=== PATIENT | female | born 2000 | race Caucasian/White ===

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

== ENCOUNTER 2021-04-04 18:30 | Emergency (ER) | payer OTHER ==
[2021-04-04 19:54] VITALS: BP 126/83; PULSE 98; RESP 22; TEMP 98.7
--- NOTE | 2021-04-04 20:26 | XR ---
EXAMINATION TYPE: XR chest 1V portable DATE OF EXAM: 04/04/2021 COMPARISON: NONE HISTORY: Cough and congestion TECHNIQUE: Single view FINDINGS: Heart and mediastinum are normal. Lungs are clear. Diaphragm is normal. Bony thorax appears normal. IMPRESSION: Normal chest.
[2021-04-05] MEDS ORDERED: ONDANSETRON 4 MG ODT STARTER PACK 2 TAB BTL PO STA (00:21)
[2021-04-05] MEDS ORDERED: guaiFENesin-DM 600/30MG 1 EACH TAB.ER.12H PO STA (00:21)
--- NOTE | 2021-04-05 00:22 | ED ---
URI HPI - General Chief Complaint: Upper Respiratory Infection Stated Complaint: Cold,Loss of smell Time Seen by Provider: 04/04/21 23:47 Source: patient, family Mode of arrival: ambulatory Limitations: no limitations - History of Present Illness Initial Comments: 20-year-old female patient percents to the emergency department today for evaluation of upper respiratory symptoms and loss of taste and smell. Patient states she's been sick for the last week. States today she lost her taste and smell became concerned she may have COVID-19. States that she has had mild cough, sore throat which has resolved, and nasal congestion and drainage. Denies nausea or vomiting. Denies any constipation or diarrhea. Denies any abdominal pain. Denies taking any medication for her symptoms. She denies any chance of . She is not vaccinated. - Related Data Previous Rx's Medication Instructions Recorded Ondansetron [Zofran ODT] 4 mg PO Q8HR PRN #15 tab 07/01/18 Ondansetron [Zofran ODT] 4 mg PO Q8HR PRN #20 tab 12/20/18 Ibuprofen [Motrin] 600 mg PO Q8HR PRN #30 tab 04/05/21 Ondansetron [Zofran ODT] 4 mg PO Q8HR PRN #10 tab 04/05/21 guaiFENesin-DM 600/30MG [Mucinex 2 each PO Q12HR PRN #20 tab 04/05/21 Dm] Allergies Allergy/AdvReac Type Severity Reaction Status Date / Time No Known Allergies Allergy Verified 04/04/21 19:54 Review of Systems ROS Statement: Those systems with pertinent positive or pertinent negative responses have been documented in the HPI. ROS Other: All systems not noted in ROS Statement are negative. Past Medical History Past Medical History: No Reported History History of Any Multi-Drug Resistant Organisms: None Reported Past Surgical History: No Surgical Hx Reported Past Psychological History: No Psychological Hx Reported Smoking Status: Never smoker Past Alcohol Use History: None Reported Past Drug Use History: None Reported General Exam Limitations: no limitations General appearance: alert, in no apparent distress, other (This is a well- developed, well-nourished adult female in no acute distress.) ENT exam: Present: normal exam, normal oropharynx, mucous membranes moist, TM's normal bilaterally Respiratory exam: Present: normal lung sounds bilaterally. Absent: respiratory distress, wheezes, rales, rhonchi, stridor Cardiovascular Exam: Present: regular rate, normal rhythm, normal heart sounds. Absent: systolic murmur, diastolic murmur, rubs, gallop, clicks GI/Abdominal exam: Present: soft, normal bowel sounds. Absent: distended, tenderness, guarding, rebound, rigid Neurological exam: Present: alert, oriented X3, CN II-XII intact Psychiatric exam: Present: normal affect, normal mood Skin exam: Present: warm, dry, intact, normal color. Absent: rash Course Vital Signs 04/04/21 19:49 Temperature 98.7 F Pulse Rate 98 Respiratory 22 Rate Blood Pressure 126/83 O2 Sat by Pulse 99 Oximetry Medical Decision Making - Medical Decision Making 20-year-old female patient presents to the emergency department today for evaluation of upper respiratory symptoms and loss of taste and smell. Physical examination is unremarkable. She did test positive for COVID-19. Chest x-ray was negative. Vital signs are within normal range. We did discuss monoclonal antibody infusion, she did meet criteria. We discussed risks and benefits. She declined this medication and would like to be discharged home. She is given prescriptions for medications for symptom relief. She is instructed to follow- up with her primary care physician for recheck in 1-2 days. Return parameters were discussed in detail. She verbalizes understanding and agrees with this plan. My attending is Dr. Mauro. - Lab Data Lab Results 04/04/21 Range/Units 19:56 Coronavirus (PCR) Detected A (Not Detectd) - Radiology Data Radiology results: report reviewed, image reviewed One view x-ray of the chest is obtained. Report was reviewed in its entirety. Impression by Dr. Cordero shows normal chest. Disposition Clinical Impression: COVID-19 Disposition: HOME SELF-CARE Condition: Good Instructions (If sedation given, give patient instructions): Coronavirus Disease 2019 (COVID-19) Additional Instructions: Tips to help you feel better: -Maintain adequate fluid intake - especially water. -Rest, you are healing your body will require extra sleep. -Eat even if you do not feel like it - broth, jello, toast are fine if you cannot eat full meals. -Take tylenol and motrin alternating (if you have no allergies or have not been instructed to avoid these medications) to help with body aches and fevers. -Obtain over the counter vitamin C, zinc, and vitamin D3. -Take medications as prescribed. Follow-up with your primary care physician for recheck in 1-2 days. Return for any new, worsening, or concerning symptoms. Prescriptions: Ibuprofen [Motrin] 600 mg PO Q8HR PRN #30 tab PRN Reason: Pain guaiFENesin-DM 600/30MG [Mucinex Dm] 2 each PO Q12HR PRN #20 tab PRN Reason: Cough Ondansetron [Zofran ODT] 4 mg PO Q8HR PRN #10 tab PRN Reason: Nausea Is patient prescribed a controlled substance at d/c from ED?: No Referrals: None,Stated [Primary Care Provider] - 1-2 days Time of Disposition: 00:22
== END 2021-04-05 00:54 | disposition home or self-care (01) ==
LOC: EC 18:30
DX: U07.1 COVID-19 (principal)
CPT/HCPCS: 99283; 87635; 71045; S0119

== ENCOUNTER 2022-05-06 20:04 | Emergency (ER) | payer OTHER ==
[2022-05-06 20:42] VITALS: RESP 18; TEMP 103
[2022-05-06] MEDS ORDERED: IBUPROFEN 800 MG TAB PO STA (21:41)
[2022-05-06] MEDS ORDERED: ACETAMINOPHEN TAB 500 MG TAB PO STA (21:41)
[2022-05-06] MEDS ORDERED: ONDANSETRON ODT 4 MG TAB PO STA (21:45)
--- NOTE | 2022-05-06 21:52 | ED ---
URI HPI - General Chief Complaint: Upper Respiratory Infection Stated Complaint: Fever,sob,vomiting Time Seen by Provider: 05/06/22 21:40 Source: patient, family, RN notes reviewed, old records reviewed Mode of arrival: ambulatory Limitations: no limitations - History of Present Illness Initial Comments: Nontoxic appearing patient presents ambulatory with her mother with fever chills cough nausea vomiting for 2 days. She did have covid last year. Denies any medical history. She is a nonsmoker. MD Complaint: fever, cough, other (n/v) -: days(s) (2) Severity scale (1-10): 5 Quality: aching Consistency: constant - Related Data Previous Rx's Medication Instructions Recorded Ondansetron [Zofran ODT] 4 mg PO Q8HR PRN #15 tab 07/01/18 Ondansetron [Zofran ODT] 4 mg PO Q8HR PRN #20 tab 12/20/18 Ibuprofen [Motrin] 600 mg PO Q8HR PRN #30 tab 04/05/21 Ondansetron [Zofran ODT] 4 mg PO Q8HR PRN #10 tab 04/05/21 guaiFENesin-DM 600/30MG [Mucinex 2 each PO Q12HR PRN #20 tab 04/05/21 Dm] Ondansetron Odt [Zofran Odt] 4 mg PO Q8HR PRN #10 tab 05/06/22 Allergies Allergy/AdvReac Type Severity Reaction Status Date / Time No Known Allergies Allergy Verified 05/06/22 20:36 Review of Systems ROS Statement: Those systems with pertinent positive or pertinent negative responses have been documented in the HPI. ROS Other: All systems not noted in ROS Statement are negative. Past Medical History Past Medical History: No Reported History Additional Past Medical History / Comment(s): covid 2021 History of Any Multi-Drug Resistant Organisms: None Reported Past Surgical History: No Surgical Hx Reported Past Psychological History: No Psychological Hx Reported Smoking Status: Never smoker Past Alcohol Use History: Rare Past Drug Use History: None Reported General Exam Limitations: no limitations General appearance: alert, in no apparent distress Head exam: Present: atraumatic, normocephalic Eye exam: Present: normal appearance. Absent: scleral icterus, conjunctival injection, periorbital swelling ENT exam: Present: mucous membranes moist Expanded Mouth exam: Present: tongue normal, tongue elevation. Absent: drooling, trismus, muffled voice Throat exam: normal inspection. negative: tonsillar erythema, tonsillomegaly, tonsillar exudate, R peritonsillar mass, L peritonsillar mass Neck exam: Present: normal inspection, full ROM. Absent: tenderness, meningismus, lymphadenopathy Respiratory exam: Present: normal lung sounds bilaterally. Absent: respiratory distress, accessory muscle use Cardiovascular Exam: Present: tachycardia GI/Abdominal exam: Present: soft. Absent: distended, tenderness Extremities exam: Present: normal capillary refill. Absent: pedal edema Neurological exam: Present: alert, oriented X3, normal gait Psychiatric exam: Present: normal affect, normal mood Skin exam: Present: warm, dry, normal color. Absent: cyanosis, diaphoretic, petechiae, pallor Course Vital Signs 05/06/22 05/06/22 05/06/22 20:36 22:21 22:33 Temperature 103 F H Pulse Rate 130 H 119 H 104 H Respiratory 18 18 Rate Blood Pressure 112/74 109/72 O2 Sat by Pulse 97 97 Oximetry Medical Decision Making - Medical Decision Making She was given Tylenol, Motrin and Zofran in the emergency room. Positive for Covid. Heart rate came down with medications, tachycardia likely related to her fever She did have coronavirus last year. Directed to increase her fluid intake. Quarantine and follow up with her primary care doctor. Return to the emergency room with any new or concerning symptoms. Was pt. sent in by a medical professional or institution? @ -No Did you speak to anyone other than the patient for history? @ -Mother Did you review nursing and triage notes? @ -Yes I agree Were old charts reviewed? @ -No Differential Diagnosis? @ -Differential Fever: Pneumonia, viral URI, endocarditis, myocarditis, pericarditis, otitis, sinusitis, peritonsillar Abscess, retropharyngeal Abscess, epiglottitis, peritonitis, appendicitis, this is not meant to be an all-inclusive list. EKG interpreted by me (3pts min.)? @ -Not applicable X-rays interpreted by me (1pt min.)? @ -Not applicable CT interpreted by me (1pt min.)? @ -Not applicable U/S interpreted by me (1pt. min.)? @ -Not applicable What testing was considered but not performed? (CT, X-rays, U/S, labs)? Why? @ None What meds were considered but not given? Why? @ -None Did you discuss the management of the patient with other professionals? @ -No Did you reconcile home meds? @ -No Was smoking cessation discussed for >3mins.? @ -No Was critical care preformed (if so, how long)? @ -No Were there social determinants of health that impacted care today? How? (Homelessness, low income, unemployed, alcoholism, drug addiction, transportation, low edu. Level, literacy, decrease access to med. care, retirement, rehab)? @ -None Was there de-escalation of care discussed even if they declined? (Discuss DNR or withdrawal of care, Hospice)? @ -No What co-morbidities impacted this encounter? (DM, HTN, Smoking, COPD, CAD, Cancer, CVA, Hep., AIDS, mental health diagnosis, sleep apnea, morbid obesity)? @ -None Was patient admitted / discharged? @ -Discharged Undiagnosed new problem with uncertain prognosis? @ -[none] Drug Therapy requiring intensive monitoring for toxicity (Heparin, Nitro, Insulin, Cardizem)? @ -No Were any procedures done? @ -No Diagnosis/symptom? @ -Coronavirus Acute, or Chronic, or Acute on Chronic? @ -Acute Uncomplicated (without systemic symptoms) or Complicated (systemic symptoms)? @ -Uncomplicated Side effects of treatment? @ -[none] Exacerbation, Progression, or Severe Exacerbation] @ -[no] Poses a threat to life or bodily function? @ -[no] - Lab Data Lab Results 05/06/22 05/06/22 Range/Units 20:42 20:46 Coronavirus (PCR) Detected A (Not Detectd) Influenza Type A RNA Not Detected (Not Detectd) Influenza Type B (PCR) Not Detected (Not Detectd) Disposition Clinical Impression: COVID-19 Disposition: HOME SELF-CARE Condition: Good Instructions (If sedation given, give patient instructions): COVID-19 (Coronavirus Disease 2019) (ED) Additional Instructions: Tylenol and/or Motrin as needed for any fevers, pain or discomfort. Zofran as needed for any nausea. Increase your fluid intake and avoid dehydration as this will worsen your symptoms. Self quarantine for 5 days from symptom onset. If after 5 days with no symptoms you can go into public wearing just a mask. Follow-up with the primary care doctor as needed. Return to the emergency room with any new or concerning symptoms. Prescriptions: Ondansetron Odt [Zofran Odt] 4 mg PO Q8HR PRN #10 tab PRN Reason: Nausea Is patient prescribed a controlled substance at d/c from ED?: No Referrals: None,Stated [Primary Care Provider] - 1-2 days Time of Disposition: 22:33
[2022-05-06 22:22] VITALS: BP 109/72
[2022-05-06 22:33] VITALS: PULSE 104
== END 2022-05-06 23:00 | disposition home or self-care (01) ==
LOC: EC 20:04
DX: U07.1 COVID-19 (principal)
CPT/HCPCS: 87502; 87635; 99284

== ENCOUNTER 2022-08-04 18:27 | Emergency (ER) | payer OTHER ==
[2022-08-04 19:24] VITALS: BP 113/65; PULSE 57; RESP 14; TEMP 98.3
--- NOTE | 2022-08-04 19:24 | ED ---
Psych HPI - General Source: patient Mode of arrival: ambulatory Limitations: no limitations <Salome Carrasquillo - Last Filed: 08/04/22 19:23> <Trev Peña - Last Filed: 08/05/22 00:38> - General Stated Complaint: mental health issues Time Seen by Provider: 08/04/22 19:23 - History of Present Illness Initial Comments: Patient is a 21-year-old female presenting for mental health evaluation. States that she has been feeling depressed and would like to be evaluated. She denies any suicidal or homicidal ideation. Denies any alcohol or drug use. No physical complaints at this time. (Salome Carrasquillo) This is a 21-year-old female with no past medical history presents emergency department for depression. The patient stated that she has been depressed over last several months but stated that she has not had any resources or is talk to anybody therefore she wanted to come to the emergency department. The patient denied suicidal or homicidal ideation. The patient also denied any auditory or visual hallucinations. The patient stated that she doesn't of any follow-up or resources for a therapist or counselor's. The patient denied any other acute pain or complaints at this time. (Trev Peña) - Related Data Previous Rx's Medication Instructions Recorded Ondansetron [Zofran ODT] 4 mg PO Q8HR PRN #15 tab 07/01/18 Ondansetron [Zofran ODT] 4 mg PO Q8HR PRN #20 tab 12/20/18 Ibuprofen [Motrin] 600 mg PO Q8HR PRN #30 tab 04/05/21 Ondansetron [Zofran ODT] 4 mg PO Q8HR PRN #10 tab 04/05/21 guaiFENesin-DM 600/30MG [Mucinex 2 each PO Q12HR PRN #20 tab 04/05/21 Dm] Ondansetron Odt [Zofran Odt] 4 mg PO Q8HR PRN #10 tab 05/06/22 Allergies Allergy/AdvReac Type Severity Reaction Status Date / Time No Known Allergies Allergy Verified 05/06/22 20:36 Review of Systems ROS Other: All systems not noted in ROS Statement are negative. <Salome Carrasquillo - Last Filed: 08/04/22 19:23> ROS Other: All systems not noted in ROS Statement are negative. <Trev Peña - Last Filed: 08/05/22 00:38> ROS Statement: Those systems with pertinent positive or pertinent negative responses have been documented in the HPI. Past Medical History Past Medical History: No Reported History Additional Past Medical History / Comment(s): covid 2021 History of Any Multi-Drug Resistant Organisms: None Reported Past Surgical History: No Surgical Hx Reported Past Psychological History: No Psychological Hx Reported Smoking Status: Never smoker Past Alcohol Use History: Rare Past Drug Use History: None Reported <Salome Carrasquillo - Last Filed: 08/04/22 19:23> General Exam <Salome Carrasquillo - Last Filed: 08/04/22 19:23> Limitations: no limitations General appearance: alert, in no apparent distress Head exam: Present: atraumatic, normocephalic, normal inspection Eye exam: Present: normal appearance, PERRL Pupils: Present: normal accommodation ENT exam: Present: normal exam, normal oropharynx, mucous membranes moist Neck exam: Present: normal inspection, full ROM Respiratory exam: Present: normal lung sounds bilaterally Cardiovascular Exam: Present: regular rate, normal rhythm, normal heart sounds GI/Abdominal exam: Present: soft, normal bowel sounds Extremities exam: Present: normal inspection, full ROM Back exam: Present: normal inspection, full ROM Neurological exam: Present: alert, oriented X3, CN II-XII intact Psychiatric exam: Present: normal affect, normal mood, depressed Skin exam: Present: warm, dry <Trev Peña - Last Filed: 08/05/22 00:38> - General Exam Comments Initial Comments: Visual Physical Exam Vital signs reviewed General: Well-appearing, nontoxic, no acute distress. Head: Normocephalic, atraumatic Eyes: PERRLA, EOMI ENT: Airway patent Chest: Nonlabored breathing Skin: No visual rash, normal skin tone Neuro: Alert and oriented 3 Musculoskeletal: No gross abnormalities (Salome Carrasquillo) Course Vital Signs 08/04/22 19:18 Temperature 98.3 F Pulse Rate 57 L Respiratory 14 Rate Blood Pressure 113/65 O2 Sat by Pulse 97 Oximetry Medical Decision Making <Trev Peña - Last Filed: 08/05/22 00:38> - Medical Decision Making Was pt. sent in by a medical professional or institution (MYRNA Gonzalez, MANAGER OF MERCHANDISING, urgent care, hospital, or group home...) When possible be specific @ -No Did you speak to anyone other than the patient for history (EMS, parent, family, police, friend...)? What history was obtained from this source @ -No Did you review nursing and triage notes (agree or disagree)? Why? @ -I reviewed and agree with nursing and triage notes Were old charts reviewed (outside hosp., previous admission, EMS record, old EKG, old radiological studies, urgent care reports/EKG's, group home records)? Report findings @ -No old charts were reviewed Differential Diagnosis (chest pain, altered mental status, abdominal pain women, abdominal pain men, vaginal bleeding, weakness, fever, dyspnea, syncope, headache, dizziness, GI bleed, back pain, seizure, CVA, palpatations, mental health)? @ -Major depressive disorder, bipolar, PTSD EKG interpreted by me (3pts min.). @ -None X-rays interpreted by me (1pt min.). @ -None done CT interpreted by me (1pt min.). @ -None done U/S interpreted by me (1pt. min.). @ -None done What testing was considered but not performed or refused? (CT, X-rays, U/S, labs)? Why? @ -None What meds were considered but not given or refused? Why? @ -None Did you discuss the management of the patient with other professionals (professionals i.e. MYRNA Gonzalez, MANAGER OF MERCHANDISING, lab, RT, psych nurse, social worker health services, director search, teacher, disbursing officer, rehabilitation case coordinator)? Give summary @ -Yes, EPS nurse Was smoking cessation discussed for >3mins.? @ -No Was critical care preformed (if so, how long)? @ -No Were there social determinants of health that impacted care today? How? (Homelessness, low income, unemployed, alcoholism, drug addiction, transportation, low edu. Level, literacy, decrease access to med. care, nursing home, rehab)? @ -No Was there de-escalation of care discussed even if they declined (Discuss DNR or withdrawal of care, Hospice)? DNR status @ -No What co-morbidities impacted this encounter? (DM, HTN, Smoking, COPD, CAD, Cancer, CVA, ARF, Chemo, Hep., AIDS, mental health diagnosis, sleep apnea, morbid obesity)? @ -None Was patient admitted / discharged? Hospital course, mention meds given and route, prescriptions, significant lab abnormalities, going to OR and other pertinent info. @ -The patient was seen and evaluated emergency department. Physical exam, the patient was resting in bed without any acute distress. Vital signs admission were stable. The patient was medically cleared at this time. Because the patient denied of any criteria for inpatient admission, EPS nurse did evaluate the patient and she did give the patient resources. The patient was advised to follow-up with these resources for further workup and evaluation and to follow- up back in the emergency department if she had worsening symptoms. The patient was agreeable to this and all her questions were answered. The patient was discharged home in stable condition. Undiagnosed new problem with uncertain prognosis? @ -No Drug Therapy requiring intensive monitoring for toxicity (Heparin, Nitro, Insulin, Cardizem)? @ -No Were any procedures done? @ -No Diagnosis/symptom? @ -Depression Acute, or Chronic, or Acute on Chronic? @ -Acute Uncomplicated (without systemic symptoms) or Complicated (systemic symptoms)? @ -Uncomplicated Side effects of treatment? @ -No Exacerbation, Progression, or Severe Exacerbation? @ -No Poses a threat to life or bodily function? How? (Chest pain, [place], [place], pneumonia, PE, COPD, DKA, ARF, appy, cholecystitis, CVA, Diverticulitis, Homicidal, Suicidal, threat to staff... and all critical care pts) @ -No (Trev Peña) - Lab Data Lab Results 08/04/22 08/04/22 Range/Units 19:25 19:25 Urine Color Yellow Urine Appearance Clear (Clear) Urine pH 7.5 (5.0-8.0) Ur Specific [place] 1.019 (1.001-1.035) Urine Protein Negative (Negative) Urine Glucose (UA) Negative (Negative) Urine Ketones Negative (Negative) Urine Blood Negative (Negative) Urine Nitrite Negative (Negative) Urine Bilirubin Negative (Negative) Urine Urobilinogen <2.0 (<2.0) mg/dL Ur Leukocyte Esterase Negative (Negative) Urine HCG, Qual Not Detected (Not Detectd) Urine Opiates Screen Not Detected (NotDetected) Ur Oxycodone Screen Not Detected (NotDetected) Urine Methadone Screen Not Detected (NotDetected) Ur Propoxyphene Screen Not Detected (NotDetected) Ur Barbiturates Screen Not Detected (NotDetected) U Tricyclic Antidepress Not Detected (NotDetected) Ur Phencyclidine Scrn Not Detected (NotDetected) Ur Amphetamines Screen Not Detected (NotDetected) U Methamphetamines Scrn Not Detected (NotDetected) U Benzodiazepines Scrn Not Detected (NotDetected) Urine Cocaine Screen Not Detected (NotDetected) U Marijuana (THC) Screen Detected H (NotDetected) Disposition <Salome Carrasquillo - Last Filed: 08/04/22 19:23> Is patient prescribed a controlled substance at d/c from ED?: No Time of Disposition: 00:30 <Trev Peña - Last Filed: 08/05/22 00:38> Clinical Impression: Depression Disposition: HOME SELF-CARE Condition: Stable Additional Instructions: Please refer to resources given by EPS nurse. Referrals: None,Stated [Primary Care Provider] - 1-2 days
[2022-08-04 19:58] LABS: Appearance,Urine Clear (Clear); Bilirubin,Urine Negative (Negative); Blood,Urine Negative (Negative); Color,Urine Yellow; Glucose,Urine (UA) Negative (Negative); Ketones,Urine Negative (Negative); Leukocyte Esterase,Urine Negative (Negative); Nitrite,Urine Negative (Negative); PH, Urine 7.5 (5.0-8.0); Protein,Urine Negative (Negative); Specific Gravity,Urine 1.019 (1.001-1.035); Urobilinogen,Urine <2.0 mg/dL (<2.0)
[2022-08-04 20:10] LABS: Amphetamine Screen,Urine Not Detected (NotDetected); Barbiturate Screen,Urine Not Detected (NotDetected); Benzodiazepines Screen,Urine Not Detected (NotDetected); Cocaine Screen,Urine Not Detected (NotDetected); Methadone Screen, Urine Not Detected (NotDetected); Opiate Screen,Urine Not Detected (NotDetected); Oxycodone Screen, Urine Not Detected (NotDetected); Phencyclidine Screen,Urine Not Detected (NotDetected); Tricyclic Antidepressant,Urine Not Detected (NotDetected); Urn Cannabinoid Scrn Detected (NotDetected)
== END 2022-08-05 01:10 | disposition home or self-care (01) ==
LOC: EC 18:27
DX: F32.A Depression, unspecified (principal); E11.9 Type 2 diabetes mellitus without complications; Z86.16 Personal history of COVID-19
CPT/HCPCS: 80306; 81003; 81025; 82075; 99284

== ENCOUNTER 2022-11-04 22:54 | Emergency (ER) | payer OTHER ==
--- NOTE | 2022-11-05 00:15 | ED ---
Allergic Reaction HPI - General Source: patient Mode of arrival: ambulatory Limitations: no limitations <Yoel Jacobs - Last Filed: 11/05/22 00:11> <Salome Carrasquillo - Last Filed: 11/05/22 03:02> - General Chief complaint: Allergic Reaction Stated complaint: Drank on medication, doesn't feel good - History of Present Illness Initial Comments: 21-year-old female with past medical history significant for depression presenting the ED with a chief complaint of altered mental status. Patient states that approximately 6 PM took 20 mg of Lexapro as prescribed however states that 8 PM had a wine cooler. Since then states that she "feels in and out of it "and states that she feels "like I am blacking out". According to boyfriend states that she is more anxious than usual. Denies any other drug use. No other complaints. (Yoel Jacobs) Patient is a 21-year-old female presenting with chief complaint of "I don't feel well". Patient states this evening she drank a "wine cooler" after taking her Lexapro. She started taking Lexapro 2 weeks ago. Patient states that she was feeling "out of it". she states that this occurred a few hours ago. She is concerned that and having a panic attack. At this time is having no difficulty breathing or swallowing, no chest pain, nausea, vomiting, abdominal pain, fever, chills, vision or hearing, numbness, tingling, weakness. (Salome Carrasquillo) - Related Data Previous Rx's Medication Instructions Recorded Ondansetron [Zofran ODT] 4 mg PO Q8HR PRN #15 tab 07/01/18 Ondansetron [Zofran ODT] 4 mg PO Q8HR PRN #20 tab 12/20/18 Ibuprofen [Motrin] 600 mg PO Q8HR PRN #30 tab 04/05/21 Ondansetron [Zofran ODT] 4 mg PO Q8HR PRN #10 tab 04/05/21 guaiFENesin-DM 600/30MG [Mucinex 2 each PO Q12HR PRN #20 tab 04/05/21 Dm] Ondansetron Odt [Zofran Odt] 4 mg PO Q8HR PRN #10 tab 05/06/22 Allergies Allergy/AdvReac Type Severity Reaction Status Date / Time No Known Allergies Allergy Verified 11/04/22 23:24 Review of Systems ROS Other: All systems not noted in ROS Statement are negative. <ArleneYoel - Last Filed: 11/05/22 00:11> ROS Other: All systems not noted in ROS Statement are negative. <Salome Carrasquillo - Last Filed: 11/05/22 03:02> ROS Statement: Those systems with pertinent positive or pertinent negative responses have been documented in the HPI. Past Medical History Past Medical History: No Reported History Additional Past Medical History / Comment(s): covid 2021 History of Any Multi-Drug Resistant Organisms: None Reported Past Surgical History: No Surgical Hx Reported Past Psychological History: Anxiety, Depression Smoking Status: Never smoker Past Alcohol Use History: Rare Past Drug Use History: Marijuana <OrestespetronaYoel - Last Filed: 11/05/22 00:11> General Exam Limitations: no limitations <OrestesguillerminakendallYoel - Last Filed: 11/05/22 00:11> Limitations: no limitations General appearance: alert, in no apparent distress Head exam: Present: atraumatic, normocephalic, normal inspection Eye exam: Present: normal appearance, EOMI. Absent: scleral icterus, periorbital swelling Neck exam: Present: normal inspection, full ROM Respiratory exam: Present: normal lung sounds bilaterally. Absent: respiratory distress, wheezes, rales, rhonchi, stridor Cardiovascular Exam: Present: regular rate, normal rhythm, normal heart sounds. Absent: systolic murmur, diastolic murmur, rubs, gallop, clicks Extremities exam: Present: normal inspection, full ROM Neurological exam: Present: alert, oriented X3, CN II-XII intact Expanded Patient oriented to: Present: person, place, time Speech: Present: fluid speech Cranial nerves: EOM's Intact: Normal Motor strength exam: RUE: 5, LUE: 5, RLE: 5, LLE: 5 Eye Response: (4) open spontaneously Motor Response: (6) obeys commands Verbal Response: (5) oriented Missy Total: 15 Psychiatric exam: Present: normal affect, normal mood Skin exam: Present: warm, dry, intact, normal color. Absent: rash <Salome Carrasquillo - Last Filed: 11/05/22 03:02> Course Vital Signs 11/04/22 11/05/22 23:19 01:57 Temperature 99.7 F H 98.6 F Pulse Rate 118 H 81 Respiratory 20 18 Rate Blood Pressure 118/56 111/80 O2 Sat by Pulse 97 97 Oximetry Medical Decision Making <Salome Carrasquillo - Last Filed: 11/05/22 03:02> - Medical Decision Making Was pt. sent in by a medical professional or institution (MYRNA Gonzalez, RENTAL CAR FERRY DRIVER, urgent care, hospital, or usp...) When possible be specific @ -No Did you speak to anyone other than the patient for history (EMS, parent, family, police, friend...)? What history was obtained from this source @ -No Did you review nursing and triage notes (agree or disagree)? Why? @ -I reviewed and agree with nursing and triage notes Were old charts reviewed (outside hosp., previous admission, EMS record, old EKG, old radiological studies, urgent care reports/EKG's, usp records)? Report findings @ -No old charts were reviewed Differential Diagnosis (chest pain, altered mental status, abdominal pain women, abdominal pain men, vaginal bleeding, weakness, fever, dyspnea, syncope, headache, dizziness, GI bleed, back pain, seizure, CVA, palpatations, mental health, musculoskeletal)? @ -Differential includes adverse drug interaction with alcohol, panic attack, this is not an all inclusive list EKG interpreted by me (3pts min.). @ -As above X-rays interpreted by me (1pt min.). @ -None done CT interpreted by me (1pt min.). @ -None done U/S interpreted by me (1pt. min.). @ -None done What testing was considered but not performed or refused? (CT, X-rays, U/S, labs)? Why? @ -None What meds were considered but not given or refused? Why? @ -None Did you discuss the management of the patient with other professionals (professionals i.e. MYRNA Gonzalez, RENTAL CAR FERRY DRIVER, lab, RT, psych nurse, pediatric social worker, order packer, teacher, chief clinical officer, case aide)? Give summary @ -No Was smoking cessation discussed for >3mins.? @ -No Was critical care preformed (if so, how long)? @ -No Were there social determinants of health that impacted care today? How? (Homelessness, low income, unemployed, alcoholism, drug addiction, transportation, low edu. Level, literacy, decrease access to med. care, longterm, rehab)? @ -No Was there de-escalation of care discussed even if they declined (Discuss DNR or withdrawal of care, Hospice)? DNR status @ -No What co-morbidities impacted this encounter? (DM, HTN, Smoking, COPD, CAD, Canc er, CVA, ARF, Chemo, Hep., AIDS, mental health diagnosis, sleep apnea, morbid obesity)? @ -None Was patient admitted / discharged? Hospital course, mention meds given and route, prescriptions, significant lab abnormalities, going to OR and other pertinent info. @ -21-year-old female presenting for evaluation after consuming alcohol with her Lexapro this evening. Patient states earlier she was "feeling out of it". At this time the patient appears well, vital signs are WNL. No difficulty breathing or swallowing. Physical examination is unremarkable with no focal neurological deficits. Patient appears stable for discharge. Instructed to not consume alcohol with her antidepressant in the future. Follow-up with PCP. Report back to ER with any new or worsening symptoms. Discussed return parameters and answered all questions. Patient conveyed verbal understanding and agreed to the plan. I discussed this case in detail with my attending Dr. Green Undiagnosed new problem with uncertain prognosis? @ -No Drug Therapy requiring intensive monitoring for toxicity (Heparin, Nitro, Insulin, Cardizem)? @ -No Were any procedures done? @ -No Diagnosis/symptom? @ -Adverse drug interaction with alcohol Acute, or Chronic, or Acute on Chronic? @ -Acute Uncomplicated (without systemic symptoms) or Complicated (systemic symptoms)? @ -Uncomplicated Side effects of treatment? @ -No Exacerbation, Progression, or Severe Exacerbation? @ -No Poses a threat to life or bodily function? How? (Chest pain, [place], [place], pneumonia, PE, COPD, DKA, ARF, appy, cholecystitis, CVA, Diverticulitis, Homicidal, [place] icidal, threat to staff... and all critical care pts) @ -No (Salome Carrasquillo) Disposition <Yoel Jacobs - Last Filed: 11/05/22 00:11> Is patient prescribed a controlled substance at d/c from ED?: No Time of Disposition: 01:28 <Salome Carrasquillo - Last Filed: 11/05/22 03:02> Clinical Impression: Adverse drug interaction with alcohol Disposition: HOME SELF-CARE Condition: Good Instructions (If sedation given, give patient instructions): Escitalopram (By mouth) Additional Instructions: Follow-up with PCP. Report back to ER with any new or worsening symptoms. Referrals: Angelique Washburn MD [Primary Care Provider] - 1-2 days
[2022-11-05 01:57] VITALS: BP 111/80; PULSE 81; RESP 18; TEMP 98.6
== END 2022-11-05 01:57 | disposition home or self-care (01) ==
LOC: EC 22:54
DX: T51.91XA Toxic effect of unspecified alcohol, accidental (unintentional), initial encounter (principal); F12.90 Cannabis use, unspecified, uncomplicated; Z86.59 Personal history of other mental and behavioral disorders
CPT/HCPCS: 99283

== ENCOUNTER 2023-11-13 18:25 | Emergency (ER) | payer OTHER ==
[2023-11-13 18:39] VITALS: RESP 18; TEMP 99.3
--- NOTE | 2023-11-13 18:42 | ED ---
Seizure HPI <Julio Hernandez - Last Filed: 11/14/23 00:42> - General Source: patient, RN notes reviewed, old records reviewed Mode of arrival: EMS Limitations: no limitations - History of Present Illness MD Complaint: seizure -: minutes(s) Description of Episode: loss of consciousness, tonic-clonic movement -: second(s) Witnessed: no Seizure History: none Place: home Possible Precipitating Event: head injury Associated Symptoms: denies other symptoms <Filiberto Mauro - Last Filed: 11/22/23 02:18> - General Chief Complaint: Seizure Stated Complaint: Seizure Time Seen by Provider: 11/13/23 18:42 - History of Present Illness Initial Comments: This is a 22-year-old female to ER for seizure new onset seizure activity history of drinking history of smoking marijuana started on antipsychotic medications (Filiberto Mauro) - Related Data Previous Rx's Medication Instructions Recorded Ondansetron [Zofran ODT] 4 mg PO Q8HR PRN #15 tab 07/01/18 Ondansetron [Zofran ODT] 4 mg PO Q8HR PRN #20 tab 12/20/18 Ibuprofen [Motrin] 600 mg PO Q8HR PRN #30 tab 04/05/21 Ondansetron [Zofran ODT] 4 mg PO Q8HR PRN #10 tab 04/05/21 guaiFENesin-DM 600/30MG [Mucinex 2 each PO Q12HR PRN #20 tab 04/05/21 Dm] Ondansetron Odt [Zofran Odt] 4 mg PO Q8HR PRN #10 tab 05/06/22 Allergies Allergy/AdvReac Type Severity Reaction Status Date / Time No Known Allergies Allergy Verified 11/13/23 18:39 Review of Systems ROS Other: All systems not noted in ROS Statement are negative. <Julio Hernandez - Last Filed: 11/14/23 00:42> ROS Other: All systems not noted in ROS Statement are negative. <Filiberto Mauro - Last Filed: 11/22/23 02:18> ROS Statement: Those systems with pertinent positive or pertinent negative responses have been documented in the HPI. Past Medical History Past Medical History: No Reported History Additional Past Medical History / Comment(s): covid 2021, seizure History of Any Multi-Drug Resistant Organisms: None Reported Past Surgical History: No Surgical Hx Reported Past Psychological History: Anxiety, Depression Smoking Status: Never smoker Past Alcohol Use History: Occasional, Rare Past Drug Use History: Marijuana <Filiberto Mauro - Last Filed: 11/22/23 02:18> General Exam Limitations: no limitations General appearance: alert, in no apparent distress Head exam: Present: atraumatic, normocephalic, normal inspection Eye exam: Present: normal appearance, PERRL, EOMI. Absent: scleral icterus, conjunctival injection, periorbital swelling ENT exam: Present: normal exam, mucous membranes moist Neck exam: Present: normal inspection. Absent: tenderness, meningismus, lymphadenopathy Respiratory exam: Present: normal lung sounds bilaterally. Absent: respiratory distress, wheezes, rales, rhonchi, stridor Cardiovascular Exam: Present: regular rate, normal rhythm, normal heart sounds. Absent: systolic murmur, diastolic murmur, rubs, gallop, clicks GI/Abdominal exam: Present: soft, normal bowel sounds. Absent: distended, tenderness, guarding, rebound, rigid Extremities exam: Present: normal inspection, full ROM, normal capillary refill. Absent: tenderness, pedal edema, joint swelling, calf tenderness Back exam: Present: normal inspection Neurological exam: Present: alert, oriented X3, CN II-XII intact Psychiatric exam: Present: normal affect, normal mood Skin exam: Present: warm, dry, intact, normal color. Absent: rash <Filiberto Mauro - Last Filed: 11/22/23 02:18> Course <Filiberto Mauro - Last Filed: 11/22/23 02:18> Vital Signs 11/13/23 11/13/23 11/13/23 18:33 18:47 19:11 Temperature 99.3 F Pulse Rate 86 78 60 Respiratory 18 18 18 Rate Blood Pressure 131/87 114/82 O2 Sat by Pulse 97 98 97 Oximetry 11/13/23 11/13/23 11/14/23 21:00 23:00 00:44 Temperature Pulse Rate 71 73 76 Respiratory 18 18 18 Rate Blood Pressure 111/68 108/68 110/70 O2 Sat by Pulse 97 100 100 Oximetry - Reevaluation(s) Reevaluation #1: 11/13/23 21:54 Medical record is reviewed (Filiberto Maruo) Reevaluation #2: 11/13/23 21:54 No recurrent seizure here in the ER (Filiberto Mauro) Reevaluation #3: 11/13/23 21:54 Patient informed of results questions answered (Filiberto Mauro) Reevaluation #4: Was pt. sent in by a medical professional or institution (MYRNA Gonzalez, COMMERCIAL DECORATOR, urgent care, hospital, or assisted...) When possible be specific @ -no Did you speak to anyone other than the patient for history (EMS, parent, family, police, friend...)? What history was obtained from this source @ -no Did you review nursing and triage notes (agree or disagree)? Why? @ -agree Are old charts reviewed (outside hosp., previous admission, EMS record, old EKG, old radiological studies, urgent care reports/EKG's, assisted records)? Report findings @ -yes Differential Diagnosis (chest pain, altered mental status, abdominal pain women, abdominal pain men, vaginal bleeding, weakness, fever, dyspnea, syncope, headache, dizziness, GI bleed, back pain, seizure, CVA, palpatations, mental health, musculoskeletal)? @ -prior EKG interpreted by me (3pts min.). @ -no X-rays interpreted by me (1pt min.). @ -yes CT interpreted by me (1pt min.). @ -Yes negative for acute disease U/S interpreted by me (1pt. min.). @ -no What testing was considered but not performed or refused? (CT, X-rays, U/S, labs)? Why? @ -none What meds were considered but not given or refused? Why? @ -none Did you discuss the management of the patient with other professionals (sue odonnell i.e. MYRNA Gonzalez, COMMERCIAL DECORATOR, lab, RT, psych nurse, high school social studies teacher, forestry professor, teacher, motorcycle police officer, skilled nursing case manager)? Give summary @ -no Was smoking cessation discussed for >3mins.? @ -no Was critical care preformed (if so, how long)? @ -no Were there social determinants of health that impacted care today? How? (Homelessness, low income, unemployed, alcoholism, drug addiction, transportation, low edu. Level, literacy, decrease access to med. care, longterm, rehab)? @ -none Was there de-escalation of care discussed even if they declined (Discuss DNR or withdrawal of care, Hospice)? DNR status @ -no What co-morbidities impacted this encounter? (DM, HTN, Smoking, COPD, CAD, Cancer, CVA, ARF, Chemo, Hep., AIDS, mental health diagnosis, sleep apnea, morbid obesity)? @ -none Was patient admitted / discharged? Hospital course, mention meds given and route, prescriptions, significant lab abnormalities, going to OR and other pertinent info. @ - 22 female to ER for evaluation of seizure new onset seizure activity for this patient with no cause of seizure found Discharge Undiagnosed new problem with uncertain prognosis? @ -no Drug Therapy requiring intensive monitoring for toxicity (Heparin, Nitro, Insulin, Cardizem)? @ -no Were any procedures done? @ -no Diagnosis/symptom? @ -Seizure activity Acute, or Chronic, or Acute on Chronic? @ -Acute Uncomplicated (without systemic symptoms) or Complicated (systemic symptoms)? @ -Complicated Side effects of treatment? @ -no Exacerbation, Progression, or Severe Exacerbation? @ -exacerbation Poses a threat to life or bodily function? How? (Chest pain, [place], [place], pneumonia, PE, COPD, DKA, ARF, appy, cholecystitis, CVA, Diverticulitis, Homicidal, Suicidal, threat to staff... and all critical care pts) @ -yes recurrent seizures seizure activity (Filiberto Mauro) Reevaluation #5: Differential Seizure: Recurrent seizure disorder, febrile seizure, alcohol withdrawal, stimulants, meningitis, encephalitis, intercranial hemorrhage, intracranial tumor, stroke, eclampsia, thyrotoxicosis, hypocalcemia, hyponatremia, hypernatremia, hypomagnesemia, psychogenic, this is not meant to be an all-inclusive list. (Filiberto Mauro) Medical Decision Making - Lab Data Result diagrams: 11/13/23 19:02 11/13/23 19:02 <Julio Hernandez - Last Filed: 11/14/23 00:42> - Lab Data Result diagrams: 11/13/23 19:02 11/13/23 19:02 - EKG Data -: EKG Interpreted by Me (EKG is sinus 91 CT 152 QRS 104 QTc 381) - Radiology Data Radiology results: report reviewed (CT brain), image reviewed <Filiberto Mauro - Last Filed: 11/22/23 02:18> - Medical Decision Making Patient care signed out to me by previous shift physician, Dr. Dilip Krueger. Patient is a 22-year-old female presents emergency department for new onset seiz ure. Patient did not have any high risk physical exam findings. Labs did not show any sort of reactive lab abnormalities. Plan at signout was to follow-up with pending CT imaging. CT scan the brain is negative. Patient observed in the emergency department for approximately 6 hours 15 minutes with no recurrent seizures. Patient discharged told to not drive and to follow-up with outpatient neurologist. (Julio Hernandez) 22 female to ER for evaluation of seizure new onset seizure activity for this patient with no cause of seizure found (Filiberto Mauro) - Lab Data Lab Results 11/13/23 11/13/23 11/13/23 Range/Units 19:02 19:02 19:07 WBC 6.7 (3.8-10.6) k/uL RBC 4.55 (3.80-5.40) m/uL Hgb 13.1 (11.4-16.0) gm/dL Hct 41.4 (34.0-46.0) % MCV 90.9 (80.0-100.0) fL MCH 28.8 (25.0-35.0) pg MCHC 31.7 (31.0-37.0) g/dL RDW 15.9 H (11.5-15.5) % Plt Count 258 (150-450) k/uL MPV 9.5 Neutrophils % 73 % Lymphocytes % 20 % Monocytes % 5 % Eosinophils % 1 % Basophils % 0 % Neutrophils # 4.9 (1.3-7.7) k/uL Lymphocytes # 1.4 (1.0-4.8) k/uL Monocytes # 0.3 (0-1.0) k/uL Eosinophils # 0.1 (0-0.7) k/uL Basophils # 0.0 (0-0.2) k/uL Sodium 137 (137-145) mmol/L Potassium 4.3 (3.5-5.1) mmol/L Chloride 106 (98-107) mmol/L Carbon Dioxide 24 (22-30) mmol/L Anion Gap 7 mmol/L BUN 9 (7-17) mg/dL Creatinine 0.67 (0.52-1.04) mg/dL Est GFR (CKD-EPI)AfAm >90 (>60 ml/min/1.73 sqM) Est GFR (CKD-EPI)NonAf >90 (>60 ml/min/1.73 sqM) Glucose 73 L (74-99) mg/dL Calcium 9.4 (8.4-10.2) mg/dL Magnesium 1.9 (1.6-2.3) mg/dL Total Bilirubin 0.4 (0.2-1.3) mg/dL AST 23 (14-36) U/L ALT 18 (4-34) U/L Alkaline Phosphatase 44 (38-126) U/L Total Protein 6.9 (6.3-8.2) g/dL Albumin 4.3 (3.5-5.0) g/dL Urine Color Urine Appearance (Clear) Urine pH (5.0-8.0) Ur Specific [place] (1.001-1.035) Urine Protein (Negative) Urine Glucose (UA) (Negative) Urine Ketones (Negative) Urine Blood (Negative) Urine Nitrite (Negative) Urine Bilirubin (Negative) Urine Urobilinogen (<2.0) mg/dL Ur Leukocyte Esterase (Negative) Urine HCG, Qual (Not Detectd) Salicylates <1.0 mg/dL Urine Opiates Screen Not Detected (NotDetected) Ur Oxycodone Screen Not Detected (NotDetected) Urine Methadone Screen Not Detected (NotDetected) Acetaminophen <10.0 ug/mL Ur Barbiturates Screen Not Detected (NotDetected) U Tricyclic Antidepress Not Detected (NotDetected) Ur Phencyclidine Scrn Not Detected (NotDetected) Ur Amphetamines Screen Not Detected (NotDetected) U Methamphetamines Scrn Not Detected (NotDetected) U Benzodiazepines Scrn Not Detected (NotDetected) Urine Cocaine Screen Not Detected (NotDetected) U Marijuana (THC) Screen Detected H (NotDetected) 11/13/23 11/13/23 Range/Units 21:00 21:00 WBC (3.8-10.6) k/uL RBC (3.80-5.40) m/uL Hgb (11.4-16.0) gm/dL Hct (34.0-46.0) % MCV (80.0-100.0) fL MCH (25.0-35.0) pg MCHC (31.0-37.0) g/dL RDW (11.5-15.5) % Plt Count (150-450) k/uL MPV Neutrophils % % Lymphocytes % % Monocytes % % Eosinophils % % Basophils % % Neutrophils # (1.3-7.7) k/uL Lymphocytes # (1.0-4.8) k/uL Monocytes # (0-1.0) k/uL Eosinophils # (0-0.7) k/uL Basophils # (0-0.2) k/uL Sodium (137-145) mmol/L Potassium (3.5-5.1) mmol/L Chloride (98-107) mmol/L Carbon Dioxide (22-30) mmol/L Anion Gap mmol/L BUN (7-17) mg/dL Creatinine (0.52-1.04) mg/dL Est GFR (CKD-EPI)AfAm (>60 ml/min/1.73 sqM) Est GFR (CKD-EPI)NonAf (>60 ml/min/1.73 sqM) Glucose (74-99) mg/dL Calcium (8.4-10.2) mg/dL Magnesium (1.6-2.3) mg/dL Total Bilirubin (0.2-1.3) mg/dL AST (14-36) U/L ALT (4-34) U/L Alkaline Phosphatase (38-126) U/L Total Protein (6.3-8.2) g/dL Albumin (3.5-5.0) g/dL Urine Color Colorless Urine Appearance Clear (Clear) Urine pH 6.5 (5.0-8.0) Ur Specific [place] 1.017 (1.001-1.035) Urine Protein Negative (Negative) Urine Glucose (UA) Negative (Negative) Urine Ketones Negative (Negative) Urine Blood Negative (Negative) Urine Nitrite Negative (Negative) Urine Bilirubin Negative (Negative) Urine Urobilinogen <2.0 (<2.0) mg/dL Ur Leukocyte Esterase Negative (Negative) Urine HCG, Qual Not Detected (Not Detectd) Salicylates mg/dL Urine Opiates Screen (NotDetected) Ur Oxycodone Screen (NotDetected) Urine Methadone Screen (NotDetected) Acetaminophen ug/mL Ur Barbiturates Screen (NotDetected) U Tricyclic Antidepress (NotDetected) Ur Phencyclidine Scrn (NotDetected) Ur Amphetamines Screen (NotDetected) U Methamphetamines Scrn (NotDetected) U Benzodiazepines Scrn (NotDetected) Urine Cocaine Screen (NotDetected) U Marijuana (THC) Screen (NotDetected) Disposition Is patient prescribed a controlled substance at d/c from ED?: No Time of Disposition: 00:42 <Julio Hernandez - Last Filed: 11/14/23 00:42> <Filiberto Mauro - Last Filed: 11/22/23 02:18> Clinical Impression: New onset seizure Disposition: HOME SELF-CARE Condition: Fair Instructions (If sedation given, give patient instructions): Seizure/Epilepsy Discharge Instructions & Follow-Up, New-Onset Seizure in Adults (ED) Additional Instructions: no driving or operating heavy machinery Referrals: None,Stated [Primary Care Provider] - 1-2 days
[2023-11-13] MEDS: SODIUM CHLORIDE 0.9% 1,000 ML IV STA (19:07)
[2023-11-13] MEDS: LORazepam 2 MG/ML INJ IV STA (19:08)
[2023-11-13 19:27] LABS: Basophils % (A) 0 %; Eosinophils # (A) 0.1 k/uL (0-0.7); Eosinophils % (A) 1 %; HCT 41.4 % (34.0-46.0); HGB 13.1 gm/dL (11.4-16.0); Lymphocytes # (A) 1.4 k/uL (1.0-4.8); Lymphocytes % (A) 20 %; MCH 28.8 pg (25.0-35.0); MCHC 31.7 g/dL (31.0-37.0); MCV 90.9 fL (80.0-100.0); Mean Platelet Volume 9.5; Monocytes # (A) 0.3 k/uL (0-1.0); Monocytes % (A) 5 %; Neutrophils # (A) 4.9 k/uL (1.3-7.7); Neutrophils % (A) 73 %; Platelet Count 258 k/uL (150-450); RBC 4.55 m/uL (3.80-5.40); RDW 15.9 % (11.5-15.5); WBC 6.7 k/uL (3.8-10.6)
[2023-11-13 19:44] LABS: ALT 18 U/L (4-34); AST 23 U/L (14-36); Acetaminophen <10.0 ug/mL; African American GFR (CKD) >90 (>60 ml/min/1.73 sqM); Albumin 4.3 g/dL (3.5-5.0); Alkaline Phosphatase 44 U/L (38-126); Anion Gap 7 mmol/L; Blood Urea Nitrogen 9 mg/dL (7-17); Calcium 9.4 mg/dL (8.4-10.2); Carbon Dioxide 24 mmol/L (22-30); Chloride 106 mmol/L (98-107); Glucose 73 mg/dL (74-99); Magnesium 1.9 mg/dL (1.6-2.3); Non-African American GFR(CKD) >90 (>60 ml/min/1.73 sqM); Potassium 4.3 mmol/L (3.5-5.1); Salicylate <1.0 mg/dL; Sodium 137 mmol/L (137-145); Total Bilirubin 0.4 mg/dL (0.2-1.3); Total Protein 6.9 g/dL (6.3-8.2)
[2023-11-13 19:56] LABS: Amphetamine Screen,Urine Not Detected (NotDetected); Barbiturate Screen,Urine Not Detected (NotDetected); Benzodiazepines Screen,Urine Not Detected (NotDetected); Cocaine Screen,Urine Not Detected (NotDetected); Methadone Screen, Urine Not Detected (NotDetected); Opiate Screen,Urine Not Detected (NotDetected); Oxycodone Screen, Urine Not Detected (NotDetected); Phencyclidine Screen,Urine Not Detected (NotDetected); Tricyclic Antidepressant,Urine Not Detected (NotDetected); Urn Cannabinoid Scrn Detected (NotDetected)
[2023-11-13] MEDS: ONDANSETRON 4 MG/2 ML VIAL IVP STA (21:09)
[2023-11-13 21:50] LABS: Appearance,Urine Clear (Clear); Bilirubin,Urine Negative (Negative); Blood,Urine Negative (Negative); Color,Urine Colorless; Glucose,Urine (UA) Negative (Negative); Ketones,Urine Negative (Negative); Leukocyte Esterase,Urine Negative (Negative); Nitrite,Urine Negative (Negative); PH, Urine 6.5 (5.0-8.0); Protein,Urine Negative (Negative); Specific Gravity,Urine 1.017 (1.001-1.035); Urobilinogen,Urine <2.0 mg/dL (<2.0)
--- NOTE | 2023-11-14 00:29 | CT ---
EXAM: CT Head Without Intravenous Contrast CLINICAL HISTORY: ITS.REASON CT Reason: sz TECHNIQUE: Axial computed tomography images of the head/brain without intravenous contrast. CTDI is 49.1 mGy and DLP is 1058.4 mGy-cm. This CT exam was performed using one or more of the following dose reduction techniques: automated exposure control, adjustment of the mA and/or kV according to patient size, and/or use of iterative reconstruction technique. COMPARISON: No relevant prior studies available. FINDINGS: No acute intracranial hemorrhage. No midline shift or mass effect. The territorial bar[place]ona-white matter differentiation is maintained throughout. The ventricles and sulci are commensurate with age. The visualized orbits appear grossly unremarkable. The calvarium is intact. The visualized paranasal sinuses and mastoid air cells are grossly clear. IMPRESSION: No acute intracranial hemorrhage, midline shift, or mass effect.
[2023-11-14 00:45] VITALS: BP 110/70; PULSE 76
== END 2023-11-14 01:00 | disposition home or self-care (01) ==
LOC: EC 18:25
DX: R56.9 Unspecified convulsions (principal); F12.90 Cannabis use, unspecified, uncomplicated
CPT/HCPCS: 36415; 93005; 80053; 83735; 85025; 81003; 81025; 80306; 80143; 80179; 70450; 99285; 96374; 96375; 96361; J2060; J2405

== ENCOUNTER 2024-01-11 11:44 | Emergency (ER) | payer OTHER ==
[2024-01-11 12:01] VITALS: RESP 18
--- NOTE | 2024-01-11 12:37 | ED ---
Seizure HPI - General Chief Complaint: Seizure Stated Complaint: Seizure Time Seen by Provider: 01/11/24 11:46 Source: patient, EMS, RN notes reviewed Mode of arrival: EMS Limitations: no limitations - History of Present Illness Initial Comments: This is a 23-year-old female who presents to the emergency department for a seizure. Patient was evaluated here on 11/12 for seizure activity. This was said to be her first seizure. Workup here did not reveal any causes and she was discharged home. She was advised to follow-up with neurology and her PCP o utpatient, but states that she has not yet made an appointment. She had been seizure-free until today. Her partner with her states that he was woken up to the patient having a seizure. He is unsure how long she may have been seizing before he was woken up. Believe that it may have lasted around 3 minutes total. She was postictal when EMS arrived and incontinent of urine. Patient is currently back to her baseline. She has a mild headache but otherwise denies any complaints. Not currently on any seizure medication. MD Complaint: seizure - Related Data Previous Rx's Medication Instructions Recorded Ondansetron [Zofran ODT] 4 mg PO Q8HR PRN #15 tab 07/01/18 Ondansetron [Zofran ODT] 4 mg PO Q8HR PRN #20 tab 12/20/18 Ibuprofen [Motrin] 600 mg PO Q8HR PRN #30 tab 04/05/21 Ondansetron [Zofran ODT] 4 mg PO Q8HR PRN #10 tab 04/05/21 guaiFENesin-DM 600/30MG [Mucinex 2 each PO Q12HR PRN #20 tab 04/05/21 Dm] Ondansetron Odt [Zofran Odt] 4 mg PO Q8HR PRN #10 tab 05/06/22 Allergies Allergy/AdvReac Type Severity Reaction Status Date / Time No Known Allergies Allergy Verified 11/13/23 18:39 Review of Systems ROS Statement: Those systems with pertinent positive or pertinent negative responses have been documented in the HPI. ROS Other: All systems not noted in ROS Statement are negative. Past Medical History Past Medical History: No Reported History Additional Past Medical History / Comment(s): covid 2021, seizure History of Any Multi-Drug Resistant Organisms: None Reported Past Surgical History: No Surgical Hx Reported Past Psychological History: Anxiety, Depression Smoking Status: Never smoker Past Alcohol Use History: Occasional, Rare Past Drug Use History: Marijuana General Exam Limitations: no limitations General appearance: alert, in no apparent distress Head exam: Present: atraumatic, normocephalic, normal inspection Eye exam: Present: normal appearance, PERRL, EOMI. Absent: scleral icterus, conjunctival injection, periorbital swelling Respiratory exam: Present: normal lung sounds bilaterally. Absent: respiratory distress, wheezes, rales, rhonchi, stridor Cardiovascular Exam: Present: regular rate, normal rhythm, normal heart sounds. Absent: systolic murmur, diastolic murmur, rubs, gallop, clicks Neurological exam: Present: alert, oriented X3, CN II-XII intact Psychiatric exam: Present: normal affect, normal mood Skin exam: Present: warm, dry, intact, normal color. Absent: rash Course Vital Signs 01/11/24 01/11/24 11:53 14:04 Temperature 98.5 F 98 F Pulse Rate 81 60 Respiratory 18 18 Rate Blood Pressure 122/74 100/69 O2 Sat by Pulse 97 100 Oximetry Medical Decision Making - Medical Decision Making This is a 23 year old female who presents to the emergency department for a seizure. Was pt. sent in by a medical professional or institution? @ -No Did you speak to anyone other than the patient for history? @ -No Did you review nursing and triage notes? @ -Yes, and I agree, it is accurate with regards to the patient's symptoms. Were old charts reviewed? @ -No Differential Diagnosis? @ -Differential Seizure: Recurrent seizure disorder, febrile seizure, alcohol withdrawal, stimulants, meningitis, encephalitis, intercranial hemorrhage, intracranial tumor, stroke, eclampsia, thyrotoxicosis, hypocalcemia, hyponatremia, hypernatremia, hypomagn esemia, psychogenic, this is not meant to be an all-inclusive list. EKG interpreted by me (3pts min.)? @ -EKG interpreted by me demonstrating the following: Sinus rhythm. V entricular rate 82 bpm, NV interval 169 ms, QRS duration 112 ms, QTc 390 ms. X-rays interpreted by me (1pt min.)? @ -Not obtained CT interpreted by me (1pt min.)? @ -Not obtained U/S interpreted by me (1pt. min.)? @ -Not obtained What testing was considered but not performed? (CT, X-rays, U/S, labs)? Why? @ -None What meds were considered but not given? Why? @ -None Did you discuss the management of the patient with other professionals? @ -No Did you reconcile home meds? @ -No Was smoking cessation discussed for >3mins.? @ -No Was critical care preformed (if so, how long)? @ -No Were there social determinants of health that impacted care today? How? (Homelessness, low income, unemployed, alcoholism, drug addiction, transportation, low edu. Level, literacy, decrease access to med. care, fpc, rehab)? @ -No Was there de-escalation of care discussed even if they declined? (Discuss DNR or withdrawal of care, Hospice)? @ -No What co-morbidities impacted this encounter? (DM, HTN, Smoking, COPD, CAD, Cancer, CVA, Hep., AIDS, mental health diagnosis, sleep apnea, morbid obesity)? @ -None Was patient admitted / discharged? @ -Discharged. Lab work unremarkable. Urinalysis negative for signs of infection. Patient remained seizure-free while in the emergency department. She was also back to baseline by the time she had arrived. Pain was managed in the emergency department. I had a long discussion with the patient about the need to follow-up with her primary care provider to discuss further testing and a neurology referral. She was also given information for follow-up with neurology directly if she has trouble getting in with her primary care provider. Advised that she is unable to drive for 6 months following most recent seizure activity. Also advised ibuprofen and Tylenol as needed for any additional discomfort. Patient discharged home in stable condition. Case discussed with ED attending Dr. Hernandez. Return precautions reviewed in depth, the patient is instructed to return to the emergency department with any new, worsening, or concerning symptoms. Patient verbalized understanding. Undiagnosed new problem with uncertain prognosis? @ -None Drug Therapy requiring intensive monitoring for toxicity (Heparin, Nitro, Insulin, Cardizem)? @ -None Were any procedures done? @ -None Diagnosis/symptom? @ -Generalized seizure Acute, or Chronic, or Acute on Chronic? @ -Acute Uncomplicated (without systemic symptoms) or Complicated (systemic symptoms)? @ -Uncomplicated Side effects of treatment? @ -None Exacerbation, Progression, or Severe Exacerbation] @ -Not applicable Poses a threat to life or bodily function? @ -No - Lab Data Result diagrams: 01/11/24 13:58 01/11/24 13:58 Lab Results 01/11/24 01/11/24 01/11/24 Range/Units 13:26 13:26 13:58 WBC 7.8 (3.8-10.6) k/uL RBC 4.46 (3.80-5.40) m/uL Hgb 13.3 (11.4-16.0) gm/dL Hct 41.0 (34.0-46.0) % MCV 92.1 (80.0-100.0) fL MCH 29.9 (25.0-35.0) pg MCHC 32.4 (31.0-37.0) g/dL RDW 14.3 (11.5-15.5) % Plt Count 316 (150-450) k/uL MPV 8.3 Neutrophils % 78 % Lymphocytes % 16 % Monocytes % 4 % Eosinophils % 1 % Basophils % 1 % Neutrophils # 6.1 (1.3-7.7) k/uL Lymphocytes # 1.3 (1.0-4.8) k/uL Monocytes # 0.3 (0-1.0) k/uL Eosinophils # 0.1 (0-0.7) k/uL Basophils # 0.0 (0-0.2) k/uL Sodium (137-145) mmol/L Potassium (3.5-5.1) mmol/L Chloride (98-107) mmol/L Carbon Dioxide (22-30) mmol/L Anion Gap mmol/L BUN (7-17) mg/dL Creatinine (0.52-1.04) mg/dL Est GFR (CKD-EPI)AfAm (>60 ml/min/1.73 sqM) Est GFR (CKD-EPI)NonAf (>60 ml/min/1.73 sqM) Glucose (74-99) mg/dL Plasma Lactic Acid Forrest (0.7-2.0) mmol/L Calcium (8.4-10.2) mg/dL Magnesium (1.6-2.3) mg/dL Total Bilirubin (0.2-1.3) mg/dL AST (14-36) U/L ALT (4-34) U/L Alkaline Phosphatase (38-126) U/L Total Protein (6.3-8.2) g/dL Albumin (3.5-5.0) g/dL Urine Color Colorless Urine Appearance Clear (Clear) Urine pH 6.5 (5.0-8.0) Ur Specific [place] 1.016 (1.001-1.035) Urine Protein Negative (Negative) Urine Glucose (UA) Negative (Negative) Urine Ketones Negative (Negative) Urine Blood Negative (Negative) Urine Nitrite Negative (Negative) Urine Bilirubin Negative (Negative) Urine Urobilinogen <2.0 (<2.0) mg/dL Ur Leukocyte Esterase Negative (Negative) Urine HCG, Qual Not Detected (Not Detectd) Urine Opiates Screen Not Detected (NotDetected) Ur Oxycodone Screen Not Detected (NotDetected) Urine Methadone Screen Not Detected (NotDetected) Ur Barbiturates Screen Not Detected (NotDetected) U Tricyclic Antidepress Not Detected (NotDetected) Ur Phencyclidine Scrn Not Detected (NotDetected) Ur Amphetamines Screen Not Detected (NotDetected) U Methamphetamines Scrn Not Detected (NotDetected) U Benzodiazepines Scrn Not Detected (NotDetected) Urine Cocaine Screen Not Detected (NotDetected) U Marijuana (THC) Screen Detected H (NotDetected) Serum Alcohol mg/dL 01/11/24 01/11/24 Range/Units 13:58 13:58 WBC (3.8-10.6) k/uL RBC (3.80-5.40) m/uL Hgb (11.4-16.0) gm/dL Hct (34.0-46.0) % MCV (80.0-100.0) fL MCH (25.0-35.0) pg MCHC (31.0-37.0) g/dL RDW (11.5-15.5) % Plt Count (150-450) k/uL MPV Neutrophils % % Lymphocytes % % Monocytes % % Eosinophils % % Basophils % % Neutrophils # (1.3-7.7) k/uL Lymphocytes # (1.0-4.8) k/uL Monocytes # (0-1.0) k/uL Eosinophils # (0-0.7) k/uL Basophils # (0-0.2) k/uL Sodium 138 (137-145) mmol/L Potassium 4.4 (3.5-5.1) mmol/L Chloride 104 (98-107) mmol/L Carbon Dioxide 28 (22-30) mmol/L Anion Gap 6 mmol/L BUN 13 (7-17) mg/dL Creatinine 0.73 (0.52-1.04) mg/dL Est GFR (CKD-EPI)AfAm >90 (>60 ml/min/1.73 sqM) Est GFR (CKD-EPI)NonAf >90 (>60 ml/min/1.73 sqM) Glucose 99 (74-99) mg/dL Plasma Lactic Acid Forrest 1.1 (0.7-2.0) mmol/L Calcium 9.5 (8.4-10.2) mg/dL Magnesium 1.9 (1.6-2.3) mg/dL Total Bilirubin 0.5 (0.2-1.3) mg/dL AST 19 (14-36) U/L ALT 16 (4-34) U/L Alkaline Phosphatase 57 (38-126) U/L Total Protein 6.7 (6.3-8.2) g/dL Albumin 4.0 (3.5-5.0) g/dL Urine Color Urine Appearance (Clear) Urine pH (5.0-8.0) Ur Specific [place] (1.001-1.035) Urine Protein (Negative) Urine Glucose (UA) (Negative) Urine Ketones (Negative) Urine Blood (Negative) Urine Nitrite (Negative) Urine Bilirubin (Negative) Urine Urobilinogen (<2.0) mg/dL Ur Leukocyte Esterase (Negative) Urine HCG, Qual (Not Detectd) Urine Opiates Screen (NotDetected) Ur Oxycodone Screen (NotDetected) Urine Methadone Screen (NotDetected) Ur Barbiturates Screen (NotDetected) U Tricyclic Antidepress (NotDetected) Ur Phencyclidine Scrn (NotDetected) Ur Amphetamines Screen (NotDetected) U Methamphetamines Scrn (NotDetected) U Benzodiazepines Scrn (NotDetected) Urine Cocaine Screen (NotDetected) U Marijuana (THC) Screen (NotDetected) Serum Alcohol <10 mg/dL Disposition Clinical Impression: Generalized seizure Disposition: HOME SELF-CARE Instructions (If sedation given, give patient instructions): Seizure/Epilepsy Discharge Instructions & Follow-Up Additional Instructions: Return to the emergency department with any new, worsening, or concerning symptoms. You cannot drive for 6 months following your most recent seizure. You need to follow-up with your primary care provider as soon as possible to discuss further management and a referral to neurology. If you cannot get a hold of your primary care provider you can try reaching out to the neurologist listed below directly for a follow-up appointment. Is patient prescribed a controlled substance at d/c from ED?: No Referrals: None,Stated [Primary Care Provider] - 1-2 days Justin Chase DO [STAFF PHYSICIAN] - 1-2 days Tulio Benjamin MD [Medical Doctor] - 1-2 days Forms: Area PCPs Time of Disposition: 14:51
[2024-01-11 13:50] LABS: Appearance,Urine Clear (Clear); Bilirubin,Urine Negative (Negative); Blood,Urine Negative (Negative); Color,Urine Colorless; Glucose,Urine (UA) Negative (Negative); Ketones,Urine Negative (Negative); Leukocyte Esterase,Urine Negative (Negative); Nitrite,Urine Negative (Negative); PH, Urine 6.5 (5.0-8.0); Protein,Urine Negative (Negative); Specific Gravity,Urine 1.016 (1.001-1.035); Urobilinogen,Urine <2.0 mg/dL (<2.0)
[2024-01-11] MEDS: SODIUM CHLORIDE 0.9% 1,000 ML IV STA (14:01)
[2024-01-11] MEDS: KETOROLAC 15 MG/ML 1 ML VIAL IVP STA ×2 (14:02→15:08)
[2024-01-11 14:04] LABS: Basophils % (A) 1 %; Eosinophils # (A) 0.1 k/uL (0-0.7); Eosinophils % (A) 1 %; HGB 13.3 gm/dL (11.4-16.0); Lymphocytes # (A) 1.3 k/uL (1.0-4.8); Lymphocytes % (A) 16 %; MCH 29.9 pg (25.0-35.0); MCHC 32.4 g/dL (31.0-37.0); MCV 92.1 fL (80.0-100.0); Mean Platelet Volume 8.3; Monocytes # (A) 0.3 k/uL (0-1.0); Monocytes % (A) 4 %; Neutrophils # (A) 6.1 k/uL (1.3-7.7); Neutrophils % (A) 78 %; Platelet Count 316 k/uL (150-450); RBC 4.46 m/uL (3.80-5.40); RDW 14.3 % (11.5-15.5); WBC 7.8 k/uL (3.8-10.6)
[2024-01-11 14:05] VITALS: BP 100/69; PULSE 60; TEMP 98
[2024-01-11 14:20] LABS: Amphetamine Screen,Urine Not Detected (NotDetected); Barbiturate Screen,Urine Not Detected (NotDetected); Benzodiazepines Screen,Urine Not Detected (NotDetected); Cocaine Screen,Urine Not Detected (NotDetected); Methadone Screen, Urine Not Detected (NotDetected); Opiate Screen,Urine Not Detected (NotDetected); Oxycodone Screen, Urine Not Detected (NotDetected); Phencyclidine Screen,Urine Not Detected (NotDetected); Tricyclic Antidepressant,Urine Not Detected (NotDetected); Urn Cannabinoid Scrn Detected (NotDetected)
[2024-01-11] MEDS: ONDANSETRON 4 MG/2 ML VIAL IVP STA ×2 (14:29→15:09)
[2024-01-11 14:39] LABS: ALT 16 U/L (4-34); AST 19 U/L (14-36); African American GFR (CKD) >90 (>60 ml/min/1.73 sqM); Alcohol <10 mg/dL; Alkaline Phosphatase 57 U/L (38-126); Anion Gap 6 mmol/L; Blood Urea Nitrogen 13 mg/dL (7-17); Calcium 9.5 mg/dL (8.4-10.2); Carbon Dioxide 28 mmol/L (22-30); Chloride 104 mmol/L (98-107); Glucose 99 mg/dL (74-99); Magnesium 1.9 mg/dL (1.6-2.3); Non-African American GFR(CKD) >90 (>60 ml/min/1.73 sqM); Potassium 4.4 mmol/L (3.5-5.1); Sodium 138 mmol/L (137-145); Total Bilirubin 0.5 mg/dL (0.2-1.3); Total Protein 6.7 g/dL (6.3-8.2)
[2024-01-11] MEDS: ACETAMINOPHEN TAB 500 MG TAB PO STA (15:07)
[2024-01-11] MEDS: ACET/COD 300 MG/30 MG STARTER PACK 6 TAB BTL PO STA (15:11)
[2024-01-11] MEDS: MORPHINE SULFATE 2 MG/ML SYRINGE IVP STA (15:12)
[2024-01-11] MEDS: ONDANSETRON 4 MG ODT STARTER PACK 2 TAB BTL PO STA (15:12)
== END 2024-01-11 15:27 | disposition home or self-care (01) ==
LOC: EC 11:44
CPT/HCPCS: 36415; 80053; 80306; 80320; 81003; 81025; 83605; 83735; 85025; 93005; 96374; 96375; 96376; 99285

== ENCOUNTER 2024-02-13 19:42 | Inpatient (IN) | payer OTHER ==
--- NOTE | 2024-02-13 20:02 | ED ---
Seizure HPI - General Chief Complaint: Seizure Stated Complaint: seizures Time Seen by Provider: 02/13/24 19:51 Source: patient, family Mode of arrival: wheelchair Limitations: no limitations - History of Present Illness Initial Comments: This patient is a 23-year-old woman who presents to evaluation after having had a total of 3 seizures today at home. Patient does have history of seizure disorder and is taking anticonvulsants but at this point does not recall the name of her medication. The patient states that she was not feeling well today. She was having fatigue, nausea, and then had seizure at home. The patient denies having fall or injury related seizure. After she had another 2 seizures family and she was brought here. MD Complaint: seizure -: hour(s) Description of Episode: loss of consciousness, tonic-clonic movement -: minutes(s) Witnessed: yes - by bystander Trauma: No Seizure History: known seizure disorder Place: home Possible Precipitating Event: none Treatments Prior to Arrival: none - Related Data Previous Rx's Medication Instructions Recorded Ondansetron [Zofran ODT] 4 mg PO Q8HR PRN #15 tab 07/01/18 Ondansetron [Zofran ODT] 4 mg PO Q8HR PRN #20 tab 12/20/18 Ibuprofen [Motrin] 600 mg PO Q8HR PRN #30 tab 04/05/21 Ondansetron [Zofran ODT] 4 mg PO Q8HR PRN #10 tab 04/05/21 guaiFENesin-DM 600/30MG [Mucinex 2 each PO Q12HR PRN #20 tab 04/05/21 Dm] Ondansetron Odt [Zofran Odt] 4 mg PO Q8HR PRN #10 tab 05/06/22 Allergies Allergy/AdvReac Type Severity Reaction Status Date / Time No Known Allergies Allergy Verified 11/13/23 18:39 Review of Systems ROS Statement: Those systems with pertinent positive or pertinent negative responses have been documented in the HPI. ROS Other: All systems not noted in ROS Statement are negative. Constitutional: Denies: fever, chills, weakness Eyes: Denies: vision change Respiratory: Denies: cough, dyspnea Cardiovascular: Denies: chest pain, palpitations Gastrointestinal: Reports: nausea, vomiting. Denies: abdominal pain, diarrhea Genitourinary: Denies: dysuria, hematuria Musculoskeletal: Denies: back pain Skin: Denies: rash Neurological: Denies: headache, weakness, numbness Past Medical History Past Medical History: No Reported History Additional Past Medical History / Comment(s): covid 2021, seizure History of Any Multi-Drug Resistant Organisms: None Reported Past Surgical History: No Surgical Hx Reported Past Psychological History: Anxiety, Depression Smoking Status: Never smoker Past Alcohol Use History: Occasional, Rare Past Drug Use History: Marijuana General Exam Limitations: no limitations General appearance: alert, in no apparent distress Head exam: Present: atraumatic, normocephalic Eye exam: Present: normal appearance. Absent: scleral icterus, conjunctival injection Neck exam: Present: normal inspection, full ROM. Absent: tenderness, meningismus Respiratory exam: Present: normal lung sounds bilaterally. Absent: respiratory distress, wheezes, rales, rhonchi, stridor, accessory muscle use Cardiovascular Exam: Present: regular rate, normal rhythm, normal heart sounds. Absent: systolic murmur, diastolic murmur, rubs, gallop GI/Abdominal exam: Present: soft. Absent: distended, tenderness, guarding, rebound, rigid, mass Extremities exam: Present: normal inspection, normal capillary refill. Absent: pedal edema, calf tenderness Back exam: Present: normal inspection. Absent: CVA tenderness (R), CVA tenderness (L) Neurological exam: Present: alert. Absent: motor sensory deficit Skin exam: Present: warm, dry, intact, normal color. Absent: rash Course Vital Signs 02/13/24 02/13/24 02/13/24 19:43 20:32 23:40 Temperature 97.8 F 98.1 F Pulse Rate 69 105 H 99 Respiratory 18 18 16 Rate Blood Pressure 113/86 102/66 O2 Sat by Pulse 97 98 99 Oximetry 02/14/24 03:30 Temperature Pulse Rate 96 Respiratory 18 Rate Blood Pressure 104/67 O2 Sat by Pulse 96 Oximetry Medical Decision Making - Medical Decision Making Patient is a 23-year-old woman here after having had multiple seizures at home. The patient was not returning to baseline. She was disoriented and confused. The patient therefore sent for CT scan of the brain which I interpreted as negative for acute bony injury, acute intracranial hemorrhage, mass effect. Discussion of the case with patient's family revealed that she had been having some back pain earlier in the day as well as a little bit of headache. Consideration was given to performing lumbar puncture however the patient urine and then came back showing results consistent with significant urinary tract infection. The patient will have coverage with Rocephin, be admitted to ensure that she has returned to baseline and also have neurology consultation as she has not yet seen a neurologist as outpatient related to the seizures that she has been having over the past months. Patient's family members not able to recall her anticonvulsant medication, nor is the patient able to provide this information. - Lab Data Result diagrams: 02/13/24 20:13 02/13/24 20:13 Lab Results 02/13/24 02/13/24 02/13/24 Range/Units 20:13 20:13 20:13 WBC 23.0 H (3.8-10.6) k/uL RBC 4.40 (3.80-5.40) m/uL Hgb 13.2 (11.4-16.0) gm/dL Hct 40.7 (34.0-46.0) % MCV 92.4 (80.0-100.0) fL MCH 30.0 (25.0-35.0) pg MCHC 32.4 (31.0-37.0) g/dL RDW 13.6 (11.5-15.5) % Plt Count 310 (150-450) k/uL MPV 8.8 Neutrophils % 95 % Lymphocytes % 2 % Monocytes % 3 % Eosinophils % 0 % Basophils % 0 % Neutrophils # 21.7 H (1.3-7.7) k/uL Lymphocytes # 0.5 L (1.0-4.8) k/uL Monocytes # 0.6 (0-1.0) k/uL Eosinophils # 0.0 (0-0.7) k/uL Basophils # 0.0 (0-0.2) k/uL Sodium 139 (137-145) mmol/L Potassium 5.6 H (3.5-5.1) mmol/L Chloride 110 H (98-107) mmol/L Carbon Dioxide 15 L (22-30) mmol/L Anion Gap 14 mmol/L BUN 12 (7-17) mg/dL Creatinine 0.65 (0.52-1.04) mg/dL Est GFR (CKD-EPI)AfAm >90 (>60 ml/min/1.73 sqM) Est GFR (CKD-EPI)NonAf >90 (>60 ml/min/1.73 sqM) Glucose 119 H (74-99) mg/dL Lactic Ac Sepsis Rflx Plasma Lactic Acid Forrest 3.2 H* (0.7-2.0) mmol/L Calcium 9.0 (8.4-10.2) mg/dL Magnesium 2.0 (1.6-2.3) mg/dL Total Bilirubin 0.9 (0.2-1.3) mg/dL AST 30 (14-36) U/L ALT 16 (4-34) U/L Alkaline Phosphatase 31 L (38-126) U/L Total Protein 7.4 (6.3-8.2) g/dL Albumin 4.7 (3.5-5.0) g/dL Urine Color Urine Appearance (Clear) Urine pH (5.0-8.0) Ur Specific [place] (1.001-1.035) Urine Protein (Negative) Urine Glucose (UA) (Negative) Urine Ketones (Negative) Urine Blood (Negative) Urine Nitrite (Negative) Urine Bilirubin (Negative) Urine Urobilinogen (<2.0) mg/dL Ur Leukocyte Esterase (Negative) Urine RBC (0-5) /hpf Urine WBC (0-5) /hpf Ur Squamous Epith Cells (0-4) /hpf Uric Acid Crystals (None) /hpf Urine Bacteria (None) /hpf Urine Mucus (None) /hpf Urine HCG, Qual (Not Detectd) Serum Alcohol <10 mg/dL 02/13/24 02/13/24 02/13/24 Range/Units 21:26 22:03 22:03 WBC (3.8-10.6) k/uL RBC (3.80-5.40) m/uL Hgb (11.4-16.0) gm/dL Hct (34.0-46.0) % MCV (80.0-100.0) fL MCH (25.0-35.0) pg MCHC (31.0-37.0) g/dL RDW (11.5-15.5) % Plt Count (150-450) k/uL MPV Neutrophils % % Lymphocytes % % Monocytes % % Eosinophils % % Basophils % % Neutrophils # (1.3-7.7) k/uL Lymphocytes # (1.0-4.8) k/uL Monocytes # (0-1.0) k/uL Eosinophils # (0-0.7) k/uL Basophils # (0-0.2) k/uL Sodium (137-145) mmol/L Potassium (3.5-5.1) mmol/L Chloride (98-107) mmol/L Carbon Dioxide (22-30) mmol/L Anion Gap mmol/L BUN (7-17) mg/dL Creatinine (0.52-1.04) mg/dL Est GFR (CKD-EPI)AfAm (>60 ml/min/1.73 sqM) Est GFR (CKD-EPI)NonAf (>60 ml/min/1.73 sqM) Glucose (74-99) mg/dL Lactic Ac Sepsis Rflx Y Plasma Lactic Acid Forrest (0.7-2.0) mmol/L Calcium (8.4-10.2) mg/dL Magnesium (1.6-2.3) mg/dL Total Bilirubin (0.2-1.3) mg/dL AST (14-36) U/L ALT (4-34) U/L Alkaline Phosphatase (38-126) U/L Total Protein (6.3-8.2) g/dL Albumin (3.5-5.0) g/dL Urine Color Colorless Urine Appearance Turbid H (Clear) Urine pH 5.0 (5.0-8.0) Ur Specific [place] 1.015 (1.001-1.035) Urine Protein Trace H (Negative) Urine Glucose (UA) Negative (Negative) Urine Ketones Negative (Negative) Urine Blood Moderate H (Negative) Urine Nitrite Negative (Negative) Urine Bilirubin Negative (Negative) Urine Urobilinogen <2.0 (<2.0) mg/dL Ur Leukocyte Esterase Large H (Negative) Urine RBC 44 H (0-5) /hpf Urine WBC 137 H (0-5) /hpf Ur Squamous Epith Cells 48 H (0-4) /hpf Uric Acid Crystals Many H (None) /hpf Urine Bacteria Occasional H (None) /hpf Urine Mucus Rare H (None) /hpf Urine HCG, Qual Not Detected (Not Detectd) Serum Alcohol mg/dL Disposition Clinical Impression: Generalized seizure, Urinary tract infection Disposition: ADMITTED IP TO THIS HOSP Condition: Fair Is patient prescribed a controlled substance at d/c from ED?: No
[2024-02-13] MEDS: SODIUM CHLORIDE 0.9% 1,000 ML IV ONE (20:21)
[2024-02-13] MEDS: LORazepam 2 MG/ML INJ IV STA (20:22)
[2024-02-13] MEDS: ONDANSETRON 4 MG/2 ML VIAL IVP STA (20:27)
[2024-02-13 20:59] LABS: Basophils % (A) 0 %; Eosinophils % (A) 0 %; HCT 40.7 % (34.0-46.0); HGB 13.2 gm/dL (11.4-16.0); Lymphocytes # (A) 0.5 k/uL (1.0-4.8); Lymphocytes % (A) 2 %; MCHC 32.4 g/dL (31.0-37.0); MCV 92.4 fL (80.0-100.0); Mean Platelet Volume 8.8; Monocytes # (A) 0.6 k/uL (0-1.0); Monocytes % (A) 3 %; Neutrophils # (A) 21.7 k/uL (1.3-7.7); Neutrophils % (A) 95 %; Platelet Count 310 k/uL (150-450); RDW 13.6 % (11.5-15.5)
[2024-02-13 21:10] LABS: ALT 16 U/L (4-34); African American GFR (CKD) >90 (>60 ml/min/1.73 sqM); Alcohol <10 mg/dL; Anion Gap 14 mmol/L; Blood Urea Nitrogen 12 mg/dL (7-17); Carbon Dioxide 15 mmol/L (22-30); Chloride 110 mmol/L (98-107); Glucose 119 mg/dL (74-99); Non-African American GFR(CKD) >90 (>60 ml/min/1.73 sqM); Sodium 139 mmol/L (137-145)
[2024-02-13 21:12] LABS: AST 30 U/L (14-36); Albumin 4.7 g/dL (3.5-5.0); Alkaline Phosphatase 31 U/L (38-126); Potassium 5.6 mmol/L (3.5-5.1); Total Bilirubin 0.9 mg/dL (0.2-1.3); Total Protein 7.4 g/dL (6.3-8.2)
[2024-02-13] MEDS: LORazepam 2 MG/ML INJ IM STA ×2 (22:50→23:25)
[2024-02-13 23:17] LABS: Appearance,Urine Turbid (Clear); Bacteria,Urine Occasional /hpf; Bilirubin,Urine Negative (Negative); Blood,Urine Moderate (Negative); Color,Urine Colorless; Glucose,Urine (UA) Negative (Negative); Ketones,Urine Negative (Negative); Leukocyte Esterase,Urine Large (Negative); Mucus,Urine Rare /hpf; Nitrite,Urine Negative (Negative); Protein,Urine Trace (Negative); RBC,Urine 44 /hpf (0-5); Specific Gravity,Urine 1.015 (1.001-1.035); Squamous Epithelial Cell,Urine 48 /hpf (0-4); Uric Acid Crystals,Urine Many /hpf; Urobilinogen,Urine <2.0 mg/dL (<2.0); WBC,Urine 137 /hpf (0-5)
[2024-02-13] MEDS ORDERED: NALOXONE 0.4 MG/ML 1 ML VIAL IV PRN (23:44)
[2024-02-14] MEDS: SODIUM CHLORIDE 0.9% 1,000 ML IV STA ×2 (00:02→00:03)
[2024-02-14] MEDS: SODIUM CHLORIDE 0.9% 1,000 ML IV ONE (00:03)
--- NOTE | 2024-02-14 00:58 | CT ---
EXAM: CT Head Without Intravenous Contrast CLINICAL HISTORY: ITS.REASON CT Reason: altered mental status TECHNIQUE: Axial computed tomography images of the head/brain without intravenous contrast. CTDI is 47.1 mGy and DLP is 1178.4 mGy-cm. This CT exam was performed using one or more of the following dose reduction techniques: automated exposure control, adjustment of the mA and/or kV according to patient size, and/or use of iterative reconstruction technique. COMPARISON: Prior head CT from November 13, 2023. FINDINGS: This study is limited secondary to motion artifact. Brain: Unremarkable. No hemorrhage. No significant white matter disease. No edema. Ventricles: Unremarkable. No ventriculomegaly. Bones/joints: Incomplete fusion of the posterior of C1. No acute fracture. Soft tissues: Unremarkable. Sinuses: Unremarkable as visualized. No acute sinusitis. Mastoid air cells: Unremarkable as visualized. No mastoid effusion. IMPRESSION: No evidence of acute intracranial pathology.
[2024-02-14 10:31] LABS: Basophils % (A) 0 %; Eosinophils # (A) 0.1 k/uL (0-0.7); Eosinophils % (A) 0 %; HCT 35.5 % (34.0-46.0); HGB 12.2 gm/dL (11.4-16.0); Lymphocytes # (A) 1.5 k/uL (1.0-4.8); Lymphocytes % (A) 11 %; MCH 30.6 pg (25.0-35.0); MCHC 34.2 g/dL (31.0-37.0); MCV 89.4 fL (80.0-100.0); Mean Platelet Volume 10.7; Monocytes # (A) 0.6 k/uL (0-1.0); Monocytes % (A) 4 %; Neutrophils # (A) 11.4 k/uL (1.3-7.7); Neutrophils % (A) 84 %; Platelet Count 239 k/uL (150-450); RBC 3.97 m/uL (3.80-5.40); RDW 14.2 % (11.5-15.5); WBC 13.6 k/uL (3.8-10.6)
[2024-02-14 12:41] LABS: ALT 14 U/L (4-34); AST 22 U/L (14-36); African American GFR (CKD) >90 (>60 ml/min/1.73 sqM); Albumin 3.9 g/dL (3.5-5.0); Albumin/Globulin Ratio 1.6; Alkaline Phosphatase 52 U/L (38-126); Anion Gap 6 mmol/L; Blood Urea Nitrogen 9 mg/dL (7-17); Calcium 8.7 mg/dL (8.4-10.2); Carbon Dioxide 20 mmol/L (22-30); Chloride 113 mmol/L (98-107); Globulin 2.4 g/dL; Glucose 92 mg/dL (74-99); Magnesium 2.1 mg/dL (1.6-2.3); Non-African American GFR(CKD) >90 (>60 ml/min/1.73 sqM); Potassium 3.8 mmol/L (3.5-5.1); Sodium 139 mmol/L (137-145); Total Bilirubin 0.8 mg/dL (0.2-1.3); Total Protein 6.3 g/dL (6.3-8.2)
[2024-02-14] MEDS ORDERED: ONDANSETRON 4 MG/2 ML VIAL IVP PRN (14:02)
[2024-02-14] MEDS: SODIUM CHLORIDE 0.9% 1,000 ML IV SCH (15:56)
[2024-02-14] MEDS: TOPIRAMATE 25 MG TAB PO SCH (15:56)
--- NOTE | 2024-02-14 16:04 | XR ---
EXAMINATION TYPE: XR chest 1V portable DATE OF EXAM: 02/14/2024 COMPARISON: 04/04/2021 HISTORY: CHF TECHNIQUE: Single frontal view of the chest is obtained. FINDINGS: There is no focal air space opacity, pleural effusion, or pneumothorax seen. The cardiac silhouette size is within normal limits. The osseous structures are intact. There is mild elevation of the right hemidiaphragm, unchanged compared to previous IMPRESSION: No acute process. [facility], , 02/14/2024 4:02 PM
[2024-02-14] MEDS: HEPARIN SODIUM,PORCINE 5,000 UNIT/ML 1 ML VIAL SQ SCH (20:04)
[2024-02-14] MEDS: PANTOPRAZOLE 40 MG/10 ML VIAL IVP SCH (20:04)
[2024-02-14] MEDS: levETIRAcetam IV 500 MG/5 ML VIAL IVP STA (21:52)
--- NOTE | 2024-02-14 22:10 | P.CONS ---
History of Present Illness - Reason for Consult Consult date: 02/14/24 Urinary tract infection, altered mental status Requesting physician: Theodore Green - Chief Complaint Seizure x 3 at home x 1 day - History of Present Illness Patient is a 23-year-old female with a past medical history significant for COVID-19 in eizure disorder along with anxiety and depression patient has been brought into the hospital after apparently the patient did have a 3 seizure at home patient also complaining of fatigue and nausea and then have seizure at home no history of any fall or any high-grade fever or chills on presentation to the hospital the patient was afebrile and no fever have recorded subsequently patient was not tachycardic hypotensive or hypoxic patient did have a elevated white 23,000 with a left shift creatinine has been normal patient did have a positive UA with large leukocyte esterase more than 137 WBC serum alcohol level has been less than 10 patient did have a CT of the brain no evidence for acute intra-cranial abnormality patient was started on Rocephin concerning for UTI infectious disease was consulted for further management of antibiotic therapy most information has been obtained from review the chart as the patient is currently lethargic not a very good historian and did not provide reliable history Review of Systems Positive points has been mentioned in HPI complete review could not be obtained because of his underlying mental status Past Medical History Past Medical History: No Reported History Additional Past Medical History / Comment(s): covid 2021, seizure History of Any Multi-Drug Resistant Organisms: None Reported Past Surgical History: No Surgical Hx Reported Past Psychological History: Anxiety, Depression Smoking Status: Never smoker Past Alcohol Use History: Occasional, Rare Past Drug Use History: Marijuana - Past Family History Mother Family Medical History: No Reported History Medications and Allergies Home Medications Medication Instructions Recorded Confirmed Type Escitalopram [Lexapro] 20 mg PO DAILY 02/14/24 02/14/24 History Topiramate [Topamax] 25 mg PO DAILY 02/14/24 02/14/24 History Allergies Allergy/AdvReac Type Severity Reaction Status Date / Time No Known Allergies Allergy Verified 02/14/24 08:05 Physical Exam Vitals: Vital Signs Temp Pulse Resp BP Pulse Ox 02/14/24 10:09 72 18 117/78 98 02/14/24 07:42 76 16 02/14/24 06:47 72 18 108/75 99 02/14/24 03:30 96 18 104/67 96 02/13/24 23:40 98.1 F 99 16 102/66 99 02/13/24 20:32 105 H 18 113/86 98 02/13/24 19:43 97.8 F 69 18 97 Intake and Output 02/13/24 02/14/24 02/14/24 22:59 06:59 14:59 Other: Weight 99.79 kg GENERAL DESCRIPTION: Middle-aged female lying in bed, no distress. No tachypnea or accessory muscle of respiration use. HEENT: Shows Pallor , no scleral icterus. Oral mucous membrane is dry. No pharyngeal erythema or thrush NECK: Trachea central, no thyromegaly. LUNGS: Unlabored breathing. Clear to auscultation anteriorly. No wheeze or crackle. HEART: S1, S2, regular rate and rhythm. No loud murmur ABDOMEN: Soft, no tenderness , guarding or rigidity, no organomegaly EXTREMITIES: No edema of feet. SKIN: No rash, no masses palpable. NEUROLOGICAL: The patient is sleepy lethargic orientation could not determine Results CBC & Chem 7: 02/14/24 06:45 02/14/24 11:55 Labs: Abnormal Lab Results - Last 24 Hours (Table) 02/13/24 02/13/24 02/13/24 Range/Units 20:13 20:13 20:13 WBC 23.0 H (3.8-10.6) k/uL Neutrophils # 21.7 H (1.3-7.7) k/uL Lymphocytes # 0.5 L (1.0-4.8) k/uL Potassium 5.6 H (3.5-5.1) mmol/L Chloride 110 H (98-107) mmol/L Carbon Dioxide 15 L (22-30) mmol/L Glucose 119 H (74-99) mg/dL Plasma Lactic Acid Forrest 3.2 H* (0.7-2.0) mmol/L Alkaline Phosphatase 31 L (38-126) U/L Urine Appearance (Clear) Urine Protein (Negative) Urine Blood (Negative) Ur Leukocyte Esterase (Negative) Urine RBC (0-5) /hpf Urine WBC (0-5) /hpf Ur Squamous Epith Cells (0-4) /hpf Uric Acid Crystals (None) /hpf Urine Bacteria (None) /hpf Urine Mucus (None) /hpf 10/13/24 10/14/24 10/14/24 Range/Units 22:03 00:55 06:45 WBC 13.6 H (3.8-10.6) k/uL Neutrophils # 11.4 H (1.3-7.7) k/uL Lymphocytes # (1.0-4.8) k/uL Potassium (3.5-5.1) mmol/L Chloride (98-107) mmol/L Carbon Dioxide (22-30) mmol/L Glucose (74-99) mg/dL Plasma Lactic Acid Forrest 2.1 H* (0.7-2.0) mmol/L Alkaline Phosphatase (38-126) U/L Urine Appearance Turbid H (Clear) Urine Protein Trace H (Negative) Urine Blood Moderate H (Negative) Ur Leukocyte Esterase Large H (Negative) Urine RBC 44 H (0-5) /hpf Urine WBC 137 H (0-5) /hpf Ur Squamous Epith Cells 48 H (0-4) /hpf Uric Acid Crystals Many H (None) /hpf Urine Bacteria Occasional H (None) /hpf Urine Mucus Rare H (None) /hpf Assessment and Plan (1) Leukocytosis Current Visit: Yes Status: Acute Code(s): D72.829 - ELEVATED WHITE BLOOD CELL COUNT, UNSPECIFIED SNOMED Code(s): 838438275 (2) Urinary tract infection Current Visit: Yes Status: Acute Code(s): N39.0 - URINARY TRACT INFECTION, SITE NOT SPECIFIED SNOMED Code(s): 50160747 Plan: 1patient presented to hospital with seizure at home and also her mental status changes did have elevated white count significantly positive UA a component of symptomatic urinary tract infection not entirely excluded as there is very hard to get any information from this patient 2we will cover the patient with Rocephin 2 g daily while waiting for the cult ure to finalize We will follow on clinical condition and cultures to further adjust medication if needed Thank you for this consultation we will follow the patient along with you Dictation was produced using [employer] dictation software. please excuse any grammatical, word or spelling errors. Time with Patient: Greater than 30
--- NOTE | 2024-02-14 23:10 | HP ---
HISTORY AND PHYSICAL CHIEF COMPLAINT: History of seizures. HISTORY OF PRESENT ILLNESS: This is a 23-year-old woman with a past medical history of multiple medical problems including COVID-19 in 2021, seizures, was admitted with multiple seizures, at least 3 seizures. The patient had some ecchymosis on the right upper arm. The patient was taking anticonvulsants also. The patient is mildly confused and was noted to have some UTI also. There is no history of any fever, rigors, or chills at this time. PAST MEDICAL HISTORY: Seizures. The rest of the history and rest of the chart is also reviewed. HOME MEDICATIONS: Reviewed include Topamax and Lexapro. Dose and other medications reviewed. ALLERGIES: None. FAMILY HISTORY: No history of heart disease or strokes in the family. SOCIAL HISTORY: Marijuana. REVIEW OF SYSTEMS: Fourteen-point review is negative except as mentioned earlier. PHYSICAL EXAMINATION: VITAL SIGNS: Pulse is 72, blood pressure 170/70, respirations 18. HEENT: Conjunctivae normal. CARDIOVASCULAR: S1, S2. RESPIRATIONS: Breath sounds diminished at the bases. ABDOMEN: Soft. LEGS: No edema. NERVOUS SYSTEM: Nonfocal. EXTREMITIES: Ecchymosis of the right upper arm present. LABORATORY DATA: WBC 13.3, rest of the labs are noted. Otherwise, CT of the brain showed no acute abnormality. ASSESSMENT: 1. Acute recurrent seizures. 2. Breakthrough seizures. 3. History of COVID-19 in 2021. 4. Anxiety, depression. 5. Acute urinary tract infection, present on admission. RECOMMENDATIONS AND DISCUSSION: This is a 23-year-old woman who presented with multiple complex medical issues, we will monitor the patient closely. I would recommend continue with p.r.n. Ativan, otherwise Neurology, Infectious Disease evaluation. Resume the home medications. DVT prophylaxis. Basic workup including COVID-19. Prognosis guarded. Further recommendations to follow. Discussed with the family at length. MMODL / IJN: [id number] /
--- NOTE | 2024-02-14 23:35 | P.CNNES ---
History of Present Illness Consult date: 02/14/24 Requesting physician: Theodore Green Reason for Consult: Seizure History of Present Illness: Patient is a 23-year-old female with history of marijuana use, admitted with recent onset seizure. Patient was somewhat somnolent, postictal, therefore history obtained from patient's mother and patient's significant other Doug at [phone]. Patient's mother states her first seizure occurred couple months ago when she was at the grocery store. On reviewing the records, her first admission was on 11/13/2023 for new onset seizure. Patient underwent CBC, CMP, urine drug screen which was positive for marijuana. Patient was discharged and recommended to follow-up with the neurologist. Patient then had a second seizure on 01/11/2024, when her partner had mentioned that he was woken up to the patient having a seizure. She was postictal when EMS arrived and incontinent of urine. Patient was again observed in the ER underwent some routine testing, urine drug screen again positive for marijuana and she was released to follow-up with the neurologist. Patient is still has not made an appointment. Patient now presented with recurrent seizures yesterday, and arrived in the ER at 7:42 PM. As per patient's significant other, she was fine yesterday in the morning. Her boyfriend was sleeping and she woke him up, telling that she was not feeling well, and her back was hurting. She was laying in the bed at 2:30 PM when she had a seizure, which lasted between 4.5 to 5-minute. She then was postictal for another 5 to 10 minutes. She was confused, not back to baseline when she had another seizure at around 4:30 PM. And a third seizure at about 6:30 PM, each of them also lasted between 4.5 up to 5 minutes. Because of these recurrent seizures, patient's boyfriend brought her to the hospital. Patient does have history of anxiety but no depression. Patient was prescribed Topamax 25 mg daily number 30 tablets, on 01/26/2024. Patient's boyfriend counted and 21 tablets are still in the bottle. Patient's boyfriend states that patient was acting normally the day prior to her seizure. Patient's boyfriend mentions that patient used to smoke marijuana once in a great while, about once a month or once every 6 months. However she started using marijuana daily for last 1-1/2 years. Patient's boyfriend mentions that she vapes marijuana throughout the day and uses marijuana Gummies quite often. She occasionally smokes marijuana. No other drug use. However patient gradually became more alert during examination, mentions that she smokes marijuana "a lot". She states that she has been smoking just this year, denies use of vaping marijuana. However patient is still slightly confused, therefore not completely reliable. Patient's mother has mentioned she drinks alcohol "once in a while" but gets drunk. Patient at present complaining of headache /. Denies any visual problems. Patient does have slow mentation. No previous history of concussion, febrile seizures of childhood, or history of meningitis encephalitis. Patient's 21-year-old brother has epilepsy since he was 5 to 6 years old. He has not had any seizure for 7-years, therefore off seizure medication. Vital signs on arrival blood pressure 113/86 pulse rate 69 temperature 97.8. Blood test with WBC 23.0, hemoglobin 13.2, platelets 310. Sodium 139 potassium 5.6, normal renal and hepatic panel. UA shows large amount of leukocyte esterase, 44 RBCs and 137 WBCs. Occasional bacteria and 48 squamous epithelial cells. Blood alcohol level less than 10. Repeat white cells this morning is 13 .6. Chest x-ray showed no acute process. CT head revealed no evidence of acute intracranial pathology. Patient has been seen by infectious disease who believes patient has UTI. Patient has been started on Rocephin 2 g daily. Blood cultures, urine cultures pending. Review of Systems Patient denies any tongue bite. Patient complains of tiredness. Complains of headache. All pertinent positive and negatives mentioned in the HPI. Past Medical History Past Medical History: No Reported History Additional Past Medical History / Comment(s): covid 2021, seizure History of Any Multi-Drug Resistant Organisms: None Reported Past Surgical History: No Surgical Hx Reported Past Anesthesia/Blood Transfusion Reactions: No Reported Reaction Past Psychological History: Anxiety, Depression Smoking Status: Never smoker Past Alcohol Use History: Occasional, Rare Additional Drug Use History / Comment(s): denies marijuana use - Past Family History Mother Family Medical History: No Reported History Medications and Allergies Home Medications Medication Instructions Recorded Confirmed Type Escitalopram [Lexapro] 20 mg PO DAILY 02/14/24 02/14/24 History Topiramate [Topamax] 25 mg PO DAILY 02/14/24 02/14/24 History Allergies Allergy/AdvReac Type Severity Reaction Status Date / Time No Known Allergies Allergy Verified 02/14/24 08:05 Physical Examination - Vital Signs Vital Signs: Vital Signs Temp Pulse Resp BP Pulse Ox 02/14/24 17:54 72 18 115/77 96 02/14/24 14:10 85 18 99/64 98 02/14/24 10:09 72 18 117/78 98 02/14/24 07:42 76 16 02/14/24 06:47 72 18 108/75 99 02/14/24 03:30 96 18 104/67 96 02/13/24 23:40 98.1 F 99 16 102/66 99 Intake and Output 02/14/24 02/14/24 02/14/24 06:59 14:59 22:59 Other: Weight 99.79 kg Patient is a young female, in no acute distress. Patient is slow mentation, prolonged latency time to answer questions. Patient was initially encephalopathic, postictal, but later did wake up. Patient knows it is January, but could not tell the year. She knows that she is in [facility] in [facility]. Speech and language functions are normal. Patient can name and repeat very well. No aphasia or dysarthria. Attention, concentration is slightly impaired and fund of knowledge is limited due to postictal state. On cranial nerve examination, pupils are equal, round and reacting to light, visual yan are full on confrontation, with no neglect on double simultaneous stimulation. Extraocular muscles are intact with no nystagmus. Face is symmetric, tongue protrudes to the midline. Palatal elevation and sensation normal, hearing and shoulder shrug normal, facial sensation normal. No evidence of tongue bite radha. On muscle strength testing, there is no pronator drift and the strength is normal in arms and legs distally and proximally. Deep tendon reflexes are symmetric 1+ and plantars withdrawal. Sensory to touch is equal with no neglect on double simultaneous stimulation. Cerebellar function showed no ataxia for [id number] testing. No dysdiadochokinesia. No ataxia for [id number] testing on either side. Tone and bulk of muscles normal. Gait deferred.. On general examination, there is no carotid bruit or murmur, S1-S2 audible. Chest is clear on consultation. Abdomen is soft nontender. No organomegaly, bowel sounds present. Peripheral pulses are present. No peripheral edema. Results - Laboratory Findings CBC and BMP: 02/14/24 06:45 02/14/24 11:55 Abnormal Lab Findings: Abnormal Labs 02/13/24 02/13/24 02/13/24 20:13 20:13 20:13 WBC 23.0 H Neutrophils # 21.7 H Lymphocytes # 0.5 L Potassium 5.6 H Chloride 110 H Carbon Dioxide 15 L Glucose 119 H Plasma Lactic Acid Forrest 3.2 H* Alkaline Phosphatase 31 L Urine Appearance Urine Protein Urine Blood Ur Leukocyte Esterase Urine RBC Urine WBC Ur Squamous Epith Cells Uric Acid Crystals Urine Bacteria Urine Mucus 02/13/24 02/14/24 02/14/24 22:03 00:55 06:45 WBC 13.6 H Neutrophils # 11.4 H Lymphocytes # Potassium Chloride Carbon Dioxide Glucose Plasma Lactic Acid Forrest 2.1 H* Alkaline Phosphatase Urine Appearance Turbid H Urine Protein Trace H Urine Blood Moderate H Ur Leukocyte Esterase Large H Urine RBC 44 H Urine WBC 137 H Ur Squamous Epith Cells 48 H Uric Acid Crystals Many H Urine Bacteria Occasional H Urine Mucus Rare H 02/14/24 11:55 WBC Neutrophils # Lymphocytes # Potassium Chloride 113 H Carbon Dioxide 20 L Glucose Plasma Lactic Acid Forrest Alkaline Phosphatase Urine Appearance Urine Protein Urine Blood Ur Leukocyte Esterase Urine RBC Urine WBC Ur Squamous Epith Cells Uric Acid Crystals Urine Bacteria Urine Mucus Assessment and Plan Assessment: * New onset seizure disorder since 11/13/2023. She had a second seizure on and now presented with 3 seizures [id number], each of them lasted for about 4-5 minutes as per significant other, who witnessed the seizures. Patient still somewhat in postictal state. * Altered mental status, possibly due to postictal state, possible encephalopathy related to acute UTI. * Lactic acidosis, probably due to UTI. * Chronic marijuana use, significantly worse in the last 1 and half years. * Anxiety disorder Plan: * Patient underwent EEG which was abnormal. As per preliminary report, there were 2 instances of solitary generalized sharp and slow wave, each of them associated with a brief whole body myoclonic jerk. No electrographic seizure was recorded. * We will check MRI of the brain with and without contrast, rule out secondary cause. * Patient has multiple seizures in the last few months. We will stop topiramate and start Keppra. Patient will be given Keppra 1000 mg IV x 1 dose followed by 500 mg twice daily. Possible side effects were discussed. * Patient's leukocytosis is improving. Her mental status is improving. If patient continues to have abnormality in the mental status, then may need lumbar puncture. At present, leukocytosis perhaps can be explained from UTI. ID on board, patient on ceftriaxone. * Patient informed of [place] state law of no driving unless seizure-free for 6 months, climbing ladders or operating dangerous machinery. * Patient has significant abuse of marijuana for last 1-1/2 years. Uncertain if patient has developed psychiatric condition related to chronic marijuana use. Will consult psychiatry. * Neurology will follow. Thank you for the consult. Time with Patient: Greater than 30
--- NOTE | 2024-02-15 02:47 | EEG ---
ELECTROENCEPHALOGRAM REPORT PREAMBLE: This is a 23-year-old female with multiple seizures. CURRENT MEDICATIONS: Unavailable. EEG FINDINGS: This is a 21-channel digital EEG recorded with video component, utilizing 10/20 international system with referential and bipolar montages. Background consists of well-developed, moderately well regulated, mixed frequencies of low-voltage fast frequency beta intermixed with some 9 to 10 hertz alpha activity seen in bihemispheric region. Background is posterior dominant and seems to be reactive to eye opening and closing. Drowsiness was seen during most of the study with presence of bilaterally symmetric theta frequency rhythm. Stage 2 sleep was attained with presence of bilaterally symmetric theta and some delta, with sleep spindles. Photic driving response was not seen. There were 2 instances of single generalized-sharp and slow waves, associated with whole-body myoclonic jerks. No electrographic seizure was recorded. EKG channel showed no obvious arrhythmia. IMPRESSION: This is an abnormal EEG due to: 1. Presence of 2 isolated instance of solitary generalized sharp and slow waves associated with generalized myoclonic jerk. This may suggest underlying cortical irritability and tendency for seizure. 2. Presence of excessive amount of low-voltage fast frequency beta activity suggests medication effect. 3. No electrographic seizure was recorded. MMODL / IJN: [id number] / [facility]ITAL[facility]
[2024-02-15] MEDS: levETIRAcetam IV 500 MG/5 ML VIAL IVP SCH (08:43)
[2024-02-15 09:49] LABS: Basophils % (A) 0 %; Eosinophils # (A) 0.1 k/uL (0-0.7); Eosinophils % (A) 1 %; HCT 40.9 % (34.0-46.0); HGB 13.4 gm/dL (11.4-16.0); Lymphocytes # (A) 2.3 k/uL (1.0-4.8); Lymphocytes % (A) 33 %; MCH 30.2 pg (25.0-35.0); MCHC 32.9 g/dL (31.0-37.0); MCV 91.9 fL (80.0-100.0); Mean Platelet Volume 8.9; Monocytes # (A) 0.3 k/uL (0-1.0); Monocytes % (A) 5 %; Neutrophils # (A) 4.1 k/uL (1.3-7.7); Neutrophils % (A) 60 %; Platelet Count 286 k/uL (150-450); RBC 4.45 m/uL (3.80-5.40); RDW 14.1 % (11.5-15.5); WBC 6.8 k/uL (3.8-10.6)
[2024-02-15 09:54] LABS: African American GFR (CKD) >90 (>60 ml/min/1.73 sqM); Anion Gap 8 mmol/L; Blood Urea Nitrogen 10 mg/dL (7-17); Calcium 9.1 mg/dL (8.4-10.2); Carbon Dioxide 18 mmol/L (22-30); Chloride 114 mmol/L (98-107); Glucose 87 mg/dL (74-99); Non-African American GFR(CKD) >90 (>60 ml/min/1.73 sqM); Sodium 140 mmol/L (137-145)
[2024-02-15 10:06] LABS: Potassium 3.8 mmol/L (3.5-5.1)
--- NOTE | 2024-02-15 10:08 | CDI ---
Documentation Clarification Form Date: 02/15/2024 From: Claudia Simon RN CCDS Phone: [phone] Admit Date: 02/13/2024 11:47:00 PM Patient Name: Shobha Frederick Visit Number: [id number] Discharge Date: ATTENTION: The Clinical Documentation Specialists (CDI) and [facility] Coding Staff appreciate your assistance in clarifying documentation. Please respond to the clarification below the line at the bottom and electronically sign. The CDI & [facility] Coding staff will review the response and follow-up if needed. Please note: Queries are made part of the Legal Health Record. If you have any questions, please contact the author of this message via ITS. Doctor/Provider: Sergey Arguelles MD: Your patient has the documented symptom of AMS" in the Neurology consult 02/13. Additional clarification regarding the etiology/cause of this symptom is requested. History/Risk Factors: 23-year-old female with a history of COVID-19 in 2021 and seizures who presents after seizure and also found to have UTI Clinical Indicators: 02/13 Neurology consult, Assessment: "Altered mental status, possibly due to postictal state, possible encephalopathy related to acute UTI." 02/13 H&P, HPI: "The patient is mildly confused and was noted to have some UTI also." 02/13 CT Brain, Impression: "No evidence of acute intracranial pathology." 02/13 EEG, Impression: "This is an abnormal EEG due to: 1. Presence of 2 isolated solitary generalized sharp and slow waves associated with generalized myoclonic jerk. This may suggest underlying cortical irritability and tendency for seizure. 2. Presence of excessive amount of low-voltage fast frequency beta activity suggests medication effect. 3. No electrographic seizure was recorded." 02/12, 02/13 Potassium: 5.6, 3.8 Lactic Acid: 3.2, 2.1, 1.2 02/12 Urinalysis: Appearance: Turbid, Protein: Trace, Blood: Moderate, Leukocyte Esterase: Large, RBC: 44, WBC: 137, Acid Crystals: Many, Bacteria: Occasional, Mucus: Rare Treatment: Consult Neurology EEG Rocephin 2gram IV [id number] start 02/13 Keppra 1000mg IV once 02/13 then 500mg IV [id number] start 02/14 Ativan 2mg IV X3 on 02/12 Topamax 25mg oral once 02/13 then dc'd Please clarify the etiology of the symptom of Altered Mental Status: [ ] Metabolic Encephalopathy due to UTI [ ] Altered Mental Status due to post-ictal state [ ] AMS due to post-ictal state superimposed on metabolic encephalopathy due to UTI [ ] Other condition (please specify) [ ] Unable to determine Metabolic Encephalopathy due to UTI MTDD
--- NOTE | 2024-02-15 14:34 | P.CN ---
Psychiatric Consult - . Consult date: 02/15/24 Consult:: 02/15/24 14:19 IDENTIFYING DATA: This patient is a 23-year-old single female with history of anxiety REASON FOR REFERRAL: Psychiatry was consulted for chronic heavy marijuana use x1.5 years HISTORY OF PRESENT ILLNESS: The patient presented to the hospital with seizures. UA was positive for UTI and patient was started on antibiotics for this. She is currently on Keppra seizures. Patient is seen and evaluated in her room with boyfriend and mother at bedside. Patient declined to speak about her current cannabis use however mother states that patient does not have a problem with cannabis. Mom states that patient only smokes occasionally and does edibles occasionally as well however she does michele cannabis daily. Patient states that cannabis helps her with anxiety. Patient is currently prescribed Lexapro for anxiety by her PCP and she denied any issues with anxiety right now. Patient appears to be precontemplative as she does not feel like she has an issue with cannabis and is not willing to accept any help with it at this time. At this time patient denies any suicidal or homical ideations, intent or plan. Patient denies any auditory, visual hallucinations and denies any paranoia or delusions. PAST PSYCHIATRIC HISTORY: Patient has a a history of prescient and anxiety. She is currently on Lexapro 20 mg daily. Patient denies any previous psychiatric hospitalizations. Patient denies any psychiatric outpatient follow-up. Patient denies any history of suicide attempts in the past. PAST MEDICAL HISTORY: Denies. ALLERGIES: as per EMR. CHEMICAL DEPENDENCY HISTORY: as per HPI. FAMILY PSYCHIATRIC/SUBSTANCE USE HISTORY: Denies MENTAL STATUS EXAM: General Appearance: Patient appears to be stated age is alert, and largely uncooperative. Patient appears to have fair hygiene and grooming wearing hospit al gown with fair eye contact. Behavior: Patient is calmly lying in bed without any agitated behavior. Speech: Patient's speech is fluent and nonpressured. Mood/Affect: Patient reports their mood is "tired", affect is congruent Suicidality/Homicidality: Patient denies having any suicidal or homicidal ideation intent or plan. Perceptions: Patient denies any visual hallucinations and denies any auditory hallucinations Though content/process: There is no evidence of any delusional thought content and thought process is linear and goal-directed. Memory and concentration: AOX3, grossly intact for the purposes of this session. Can spell "WORLD" backwards Judgment and insight: Poor IMPRESSIONS: History of anxiety History of depression Cannabis use disorder PLAN: -At this time patient is precontemplative in terms of quitting cannabis use and declined any resources to help with it at this moment -Would recommend the following medication changes/additions: Continue Lexapro 20 mg daily -Dental Instrument Maker spoke with patient about substance abuse and the harmful effects on medical and mental health, patient verbally understood and agreed. -Psychiatry will sign off at this time -Please contact with any questions.
--- NOTE | 2024-02-15 18:43 | MR ---
EXAMINATION TYPE: MR brain wo/w con DATE OF EXAM: 02/15/2024 6:35 PM CLINICAL INDICATION: Female, 23 years old with history of New onset seizure; PHH, New onset seizure COMPARISON: 02/13/2024 TECHNIQUE: Multi planar, multi sequence imaging was performed through the brain including: T1, T2, In version recovery, susceptibility weighted imaging and gradient echo imaging and Diffusion weighted im aging. The patient was then given intravenous contrast and multi planar, T1 fat-saturation images wer e obtained. IV Contrast: 10 cc Gadavist FINDINGS: The barahona-white junctions, ventricular system, basal cisterns appear unremarkable. Diffusion-weighted imaging shows no evidence of restricted diffusion to suggest acute/subacute infarct. Intracranial ar terial flow voids are maintained. Midline structures show no abnormality. The susceptibility weighted images do not reveal any evidence for micro-hemorrhage. After administration of gadolinium, no abnor mal enhancement is seen. The bone marrow signal is within normal limits. Paranasal sinuses and mastoid air cells: No significant paranasal sinus disease. Visualized orbits: Orbital contents are intact. IMPRESSION: No evidence of intracranial mass, acute/subacute infarct, or abnormal enhancement. [facility], , 02/15/2024 6:41 PM
--- NOTE | 2024-02-15 21:25 | PN ---
PROGRESS NOTE DATE OF SERVICE: 02/15/2024 SUBJECTIVE: This is a 23-year-old woman, who was admitted with recurrent seizures, being closely monitored. The patient has been initiated on Keppra by Neurology. No chest pain. No palpitations. Slightly drowsy. OBJECTIVE: VITAL SIGNS: Pulse is 63, blood pressure 111/70, respirations 16. CHEST: Clear to auscultation. CARDIOVASCULAR: S1, S2. ABDOMEN: Soft. NERVOUS SYSTEM: Nonfocal. LABORATORY DATA: Reviewed. ASSESSMENT: 1. Acute recurrent seizures. 2. Breakthrough seizures. 3. History of COVID-19 in 2021. 4. Anxiety, depression. 5. Acute urinary tract infection, present on admission. RECOMMENDATIONS AND DISCUSSION: Recommend to continue current management and continue symptomatic treatment. Cultures are pending at this time. Repeat labs. Continue with Keppra per Neurology. Further recommendations to follow. MMODL / IJN: [id number] /
[2024-02-16 07:59] VITALS: TEMP 98.2
--- NOTE | 2024-02-16 11:27 | P.PN ---
Subjective Progress Note Date: 02/15/24 Patient was seen for follow-up. Patient is laying in the bed, fully alert and awake. Patient is back to baseline. Headache has resolved. She denies any memory issues. Objective - Vital Signs Vital signs: Vital Signs Temp 98.6 F 02/15/24 12:17 Pulse 71 02/15/24 12:17 Resp 16 02/15/24 12:17 BP 116/72 02/15/24 12:17 Pulse Ox 96 02/15/24 12:17 FiO2 Intake & Output 02/14/24 02/15/24 02/15/24 18:59 06:59 18:59 Intake Total 650 Balance 650 Weight 99.79 kg Intake: Intake, IV Titration 650 Amount Sodium Chloride 0.9% 1, 600 000 ml @ 50 mls/hr IV . Q20H YUSUF Rx#:[id number] cefTRIAXone 2 gm In 50 Sodium Chloride 0.9% 50 ml @ 100 mls/hr IVPB Q24H YUSUF Rx#:[id number] Other: # Voids 1 2 - Exam Mental status, speech and language functions are normal. Cranial nerves are normal. Strength is normal. No ataxia. Sensations normal. Neck is supple. - Labs CBC & Chem 7: 02/15/24 09:17 02/15/24 09:17 Labs: Abnormal Lab Results - Last 24 Hours (Table) 02/15/24 Range/Units 09:17 Chloride 114 H (98-107) mmol/L Carbon Dioxide 18 L (22-30) mmol/L Microbiology - Last 24 Hours (Table) 02/14/24 00:00 Blood Culture - Preliminary Blood 02/13/24 22:03 Urine Culture - Final Urine,Clean Catch Assessment and Plan Assessment: * New onset seizure disorder since 11/13/2023. She had a second seizure on 01/11/2024 and now presented with 3 seizures [id number], each of them lasted for about 4-5 minutes as per significant other, who witnessed the seizures. * Altered mental status, possibly due to postictal state, possible encephalopathy related to acute UTI. Mentation completely normalized. * Lactic acidosis, probably due to UTI. * Chronic marijuana use, significantly worse in the last 1 and half years. * Anxiety disorder Plan: * EEG was abnormal, due to presence of 2 isolated instance of solitary generalized sharp and slow wave associated with generalized myoclonic jerks. This may suggest underlying cortical irritability and tendency for seizures. Presence of excessive amount of low voltage fast frequency beta activity suggest medication effect. No electrographic seizure was recorded. * Await MRI of the brain with and without contrast, rule out secondary cause. * Patient has multiple seizures in the last few months. We will stop topiramate and start Keppra. Patient will be given Keppra 1000 mg IV x 1 dose followed by 500 mg twice daily. Possible side effects were discussed. * Patient currently on ceftriaxone for UTI. No indication for lumbar puncture, as her mentation is back to normal, and patient denies headache. ID following. * Patient informed of [place] state law of no driving unless seizure-free for 6 months, climbing ladders or operating dangerous machinery. 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 * Psychiatry input appreciated. * Neurologically clear, if the MRI comes back normal. Addendum: MRI of the brain showed no evidence of intracranial mass, acute/subacute infarct or abnormal enhancement. I personally reviewed MRI agree with the findings. Neurologically clear for discharge pending medical clearance for UTI. Strongly recommend abstinence from marijuana use. Recommend patient follow-up with neurologist outpatient for management of seizure disorder. She probably will need prolonged EEG testing.
[2024-02-16 12:13] LABS: Basophils % (A) 0 %; Eosinophils % (A) 1 %; HCT 36.1 % (34.0-46.0); HGB 11.8 gm/dL (11.4-16.0); Lymphocytes # (A) 1.6 k/uL (1.0-4.8); Lymphocytes % (A) 25 %; MCH 30.3 pg (25.0-35.0); MCHC 32.8 g/dL (31.0-37.0); MCV 92.4 fL (80.0-100.0); Mean Platelet Volume 8.2; Monocytes # (A) 0.4 k/uL (0-1.0); Monocytes % (A) 6 %; Neutrophils # (A) 4.2 k/uL (1.3-7.7); Neutrophils % (A) 66 %; Platelet Count 283 k/uL (150-450); RDW 13.6 % (11.5-15.5); WBC 6.4 k/uL (3.8-10.6)
--- NOTE | 2024-02-16 12:22 | P.PN ---
Subjective Progress Note Date: 02/15/24 Principal diagnosis: Reason for follow-up is leukocytosis and UTI Patient is a 23-year-old female with a past medical history significant for COVID-19 in eizure disorder along with anxiety and depression patient has been brought into the hospital after apparently the patient did have a 3 seizure at home, patient also have a positive UA elevated white count some mental status changes concerning for symptomatic urinary tract infection prompting this consultation. On today's evaluation that is 02/15/2024 patient continues to be afebrile patient slightly more awake alert today no further seizure activity no chest pain no cough no abdominal pain no diarrhea. Patient white count normalized to 6.8, creatinine 0.69 blood urine cultures currently pending Objective - Vital Signs Vital signs: Vital Signs Temp 98.6 F 02/15/24 12:17 Pulse 71 02/15/24 12:17 Resp 16 02/15/24 12:17 BP 116/72 02/15/24 12:17 Pulse Ox 96 02/15/24 12:17 FiO2 Intake & Output 02/15/24 02/15/24 02/16/24 06:59 18:59 06:59 Intake Total 650 Balance 650 Weight 99.79 kg Intake: Intake, IV Titration 650 Amount Sodium Chloride 0.9% 1, 600 000 ml @ 50 mls/hr IV . Q20H YUSUF Rx#:[id number] cefTRIAXone 2 gm In 50 Sodium Chloride 0.9% 50 ml @ 100 mls/hr IVPB Q24H YUSUF Rx#:[id number] Other: # Voids 1 2 - Exam GENERAL DESCRIPTION: Middle-age female lying in bed in no distress RESPIRATORY SYSTEM: Unlabored breathing , decreased breath sounds at bases HEART: S1 S2 regular rate and rhythm , ABDOMEN: Soft , no tenderness EXTREMITIES: No edema feet - Labs CBC & Chem 7: 02/16/24 11:57 02/15/24 09:17 Labs: Abnormal Lab Results - Last 24 Hours (Table) 02/15/24 Range/Units 09:17 Chloride 114 H (98-107) mmol/L Carbon Dioxide 18 L (22-30) mmol/L Microbiology - Last 24 Hours (Table) 02/14/24 00:00 Blood Culture - Preliminary Blood 02/13/24 22:03 Urine Culture - Final Urine,Clean Catch Assessment and Plan (1) Leukocytosis Current Visit: Yes Status: Acute Code(s): D72.829 - ELEVATED WHITE BLOOD CELL COUNT, UNSPECIFIED SNOMED Code(s): 662232506 (2) Urinary tract infection Current Visit: Yes Status: Acute Code(s): N39.0 - URINARY TRACT INFECTION, SITE NOT SPECIFIED SNOMED Code(s): 05370643 Plan: 1patient presented to hospital with seizure at home and also her mental status changes did have elevated white count significantly positive UA a component of symptomatic urinary tract infection not entirely excluded as there is very hard to get any information from this patient with initial presentation with mental status changes 2patient to continue with Rocephin while waiting for the culture to finalize Dictation was produced using [employer] dictation software. please excuse any grammatical, word or spelling errors. Time with Patient: Less than 30
--- NOTE | 2024-02-16 12:23 | P.PN ---
Subjective Progress Note Date: 02/16/24 Principal diagnosis: Reason for follow-up is leukocytosis and UTI Patient is a 23-year-old female with a past medical history significant for COVID-19 in eizure disorder along with anxiety and depression patient has been brought into the hospital after apparently the patient did have a 3 seizure at home, patient also have a positive UA elevated white count some mental status changes concerning for symptomatic urinary tract infection prompting this consultation. On today's evaluation that is 02/16/2024, patient has been afebrile, patient is breathing comfortably and is currently on room air, patient denies having any significant cough no chest pain, patient denies nausea vomiting no diarrhea mention feeling better. Patient white count is 6.4, creatinine was normal blood and urine culture have been negative so far Objective - Vital Signs Vital signs: Vital Signs Temp 98.2 F 02/16/24 07:34 Pulse 60 02/16/24 07:34 Resp 17 02/16/24 07:34 BP 99/67 02/16/24 07:34 Pulse Ox 99 02/16/24 07:34 FiO2 Intake & Output 02/15/24 02/16/24 02/16/24 18:59 06:59 18:59 Other: Voiding Method Toilet # Voids 2 2 - Exam GENERAL DESCRIPTION: Middle-age female lying in bed in no distress RESPIRATORY SYSTEM: Unlabored breathing , decreased breath sounds at bases HEART: S1 S2 regular rate and rhythm , ABDOMEN: Soft , no tenderness EXTREMITIES: No edema feet - Labs CBC & Chem 7: 02/16/24 11:57 02/15/24 09:17 Labs: Microbiology - Last 24 Hours (Table) 02/14/24 00:00 Blood Culture - Preliminary Blood 02/13/24 22:03 Urine Culture - Final Urine,Clean Catch Assessment and Plan (1) Leukocytosis Current Visit: Yes Status: Acute Code(s): D72.829 - ELEVATED WHITE BLOOD CELL COUNT, UNSPECIFIED SNOMED Code(s): 675553404 (2) Urinary tract infection Current Visit: Yes Status: Acute Code(s): N39.0 - URINARY TRACT INFECTION, SITE NOT SPECIFIED SNOMED Code(s): 52429707 Plan: 1patient presented to hospital with seizure at home and also her mental status changes did have elevated white count significantly positive UA a component of symptomatic urinary tract infection not entirely excluded as there is very hard to get any information from this patient with initial presentation with mental status changes 2patient did have overall clinical improvement white count has normalized culture have been negative we will go ahead and discontinue Rocephin and monitor the patient closely off antibiotic therapy Dictation was produced using [employer] dictation software. please excuse any grammatical, word or spelling errors. Time with Patient: Less than 30
[2024-02-16 12:32] LABS: African American GFR (CKD) >90 (>60 ml/min/1.73 sqM); Anion Gap 7 mmol/L; Blood Urea Nitrogen 8 mg/dL (7-17); Calcium 9.3 mg/dL (8.4-10.2); Carbon Dioxide 24 mmol/L (22-30); Chloride 109 mmol/L (98-107); Glucose 91 mg/dL (74-99); Non-African American GFR(CKD) >90 (>60 ml/min/1.73 sqM); Potassium 3.5 mmol/L (3.5-5.1); Sodium 140 mmol/L (137-145)
--- NOTE | 2024-02-16 14:12 | P.DS ---
Providers Date of admission: 02/13/24 23:47 Expected date of discharge: 02/16/24 Attending physician: Sergey Arguelles Consults: 02/13/24 23:44 Consult Physician Routine Consulting Provider: John Christianson Consult Reason/Comments: seizure Do you want consulting provider notified?: Yes Consult Physician Routine Consulting Provider: Adrien Quiroga Consult Reason/Comments: Urinary tract infection. Altered mental status. Do you want consulting provider notified?: Yes 02/14/24 23:31 Consult Physician Routine Consulting Provider: Nolan Aguirre Consult Reason/Comments: Chronic heavy marijuana use x 1.5 years, rule out chronic marijuana toxicit Do you want consulting provider notified?: Yes, Notify in am [facility] Course: Final diagnosis Acute recurrent seizures with breakthrough seizures History of COVID-19 in 2021 History of anxiety/depression Acute urinary tract infection, present on admission Obesity with a BMI 33.5 THC use GI prophylaxis DVT prophylaxis Full code Discharge disposition Patient is being discharged in a stable condition with guarded prognosis to home. Patient will follow-up with Dr. Sukumar Arguelles in the outpatient setting upon discharge. Patient is to continue with oral Keppra twice daily and close outpatient follow-up with neurology as scheduled. Total time taken is greater than 35 minutes. Hospital course This is a 23-year-old female who was recently admitted with concerns for recurrent seizures with breakthrough seizures with history of seizure. Patient was started on Keppra and also with concerns of acute urinary tract infection, present on admission. Cultures finalized showing normal naty and patient was maintained on ceftriaxone showing clinical improvement and being monitored off antibiotic therapy per ID recommendations. Patient denies any pain, frequency, or burning with urination. Patient instructed to follow-up with primary care provider on discharge. Patient has been evaluated by psychiatry for excessive marijuana use and patient and family report she is not using it excessively and inappropriately and they also do not feel the need to require resources to quit using marijuana and edibles. Patient was cleared for outpatient follow-up with her primary care provider. Strongly recommend neurology follow-up in the next 1 to 2 weeks. Please refer to other consultation notes for further HPI. Currently no reports of chest pain, shortness of breath, or palpitations. Patient is afebrile. No reports of nausea or vomiting and patient is tolerating diet. Patient will be discharged home today. Guarded prognosis Physical exam: Gen: This is a 23-year-old female who is awake, alert and oriented x 3, well- developed, well-nourished, obese HEENT: Head is atraumatic, normocephalic. Pupils equal, round. Sclerae is anicteric. NECK: Supple. No JVD. No lymphadenopathy. No thyromegaly. LUNGS: Diminished breath sounds bilaterally otherwise clear to auscultation. No wheezes or rhonchi. No intercostal retractions. HEART: S1, S2 are muffled ABDOMEN: Soft. Obese bowel sounds are present. No masses. No tenderness. EXTREMITIES: No pedal edema. No calf tenderness. NEUROLOGICAL: Patient is awake, alert and oriented x3. Cranial nerves 2 through 12 are grossly intact. Please refer to medication reconciliation sheet for a list of medications. The impression and plan of care has been dictated by Suma Perkins, Nurse Practitioner as directed. Dr. Blane MD I have performed a history and examination and MDM of this patient, discussed the same with the dictator, and agree with the dictator's assessment and plan as written ,documented as a scribe. Based on total visit time, I have performed more than 50% of the visit. Patient Condition at Discharge: Fair Plan - Discharge Summary Discharge Rx Participant: No New Discharge Prescriptions: New levETIRAcetam [Keppra] 500 mg PO Q12HR 30 Days #60 tab Continue Topiramate [Topamax] 25 mg PO DAILY Escitalopram [Lexapro] 20 mg PO DAILY Discharge Medication List Escitalopram [Lexapro] 20 mg PO DAILY 02/14/24 [History] Topiramate [Topamax] 25 mg PO DAILY 02/14/24 [History] levETIRAcetam [Keppra] 500 mg PO Q12HR 30 Days #60 tab 02/16/24 [Rx] Follow up Appointment(s)/Referral(s): Angelique Washburn MD [Primary Care Provider] - 1 Week Tulio Benjamin MD [Medical Doctor] - 1 Week Patient Instructions/Handouts: Seizure/Epilepsy Discharge Instructions & Follow-Up Activity/Diet/Wound Care/Special Instructions: Activity limited until follow-up Follow-up with primary care provider on discharge Continue taking seizure medications as directed and follow-up with neurology outpatient Discussed with neurology regarding further studies for seizures Avoid THC use and exposure Discharge Disposition: HOME SELF-CARE
[2024-02-16 15:00] VITALS: BP 115/75; PULSE 71; RESP 14
== END 2024-02-16 15:38 | disposition home or self-care (01) | DRG 53 ==
LOC: EC 19:42 → 5NMEDONC 23:47 → 4SSUR 02-14 02:26
PROVIDERS: ADMIT Hospitalist; ATTEND Hospitalist
DX: G40.909 Epilepsy, unspecified, not intractable, without status epilepticus (principal); G93.41 Metabolic encephalopathy; E66.9 Obesity, unspecified; N39.0 Urinary tract infection, site not specified; F41.9 Anxiety disorder, unspecified; F32.A Depression, unspecified; E87.20 Acidosis, unspecified; R51.9 Headache, unspecified; R32 Unspecified urinary incontinence; F12.10 Cannabis abuse, uncomplicated; Z86.16 Personal history of COVID-19; Z68.33 Body mass index [BMI] 33.0-33.9, adult; Z79.899 Other long term (current) drug therapy
CPT/HCPCS: 36415; 70450; 70553; 71045; 80048; 80053; 80320; 81001; 81025; 83605; 83735; 85025; 87040; 87086; 95819; 96361; 96365; 96372; 96375; 99285

== ENCOUNTER 2024-06-28 17:37 | Emergency (ER) | payer OTHER ==
--- NOTE | 2024-06-28 18:17 | ED ---
Seizure HPI - General Source: patient, RN notes reviewed Mode of arrival: EMS Limitations: no limitations - History of Present Illness MD Complaint: seizure <Summer Lux - Last Filed: 06/28/24 18:15> <Salome Carrasquillo - Last Filed: 07/01/24 17:49> - General Chief Complaint: Seizure Stated Complaint: seizure Time Seen by Provider: 06/28/24 18:10 - History of Present Illness Initial Comments: Quick Note: This is a 23-year-old female who presents to the emergency [facility] for a seizure. Patient has a history of seizures and had one 2 weeks ago as well. Unsure which medication she is on, but states that she has not taken it for several days due to being out of it. She did hit her head when she fell and complains of a headache. Family is unsure how long the seizure lasted. (Summer Lux) 23-year-old female presenting with chief complaint of seizure. Patient has history of seizures, she is currently prescribed medication, however she is unsure the exact name and dose. She has been out of her medication and not taking it as she should. She was told that she needs to follow-up with neurology and states that she has an appointment in July but needs medication until she is able to get to her appointment. She is having a bit of a headache and feels quite tired. We are unsure how long the seizure lasted. No chest pain, difficulty breathing, abdominal pain, vomiting. She reports that she is feeling a bit better at the time of my evaluation (Salome Carrasquillo) - Related Data Home Medications Medication Instructions Recorded Confirmed Escitalopram [Lexapro] 20 mg PO DAILY 02/14/24 02/14/24 Topiramate [Topamax] 25 mg PO DAILY 02/14/24 02/14/24 Previous Rx's Medication Instructions Recorded levETIRAcetam [Keppra] 500 mg PO Q12HR 30 Days #60 tab 02/16/24 levETIRAcetam [Keppra] 500 mg PO Q12HR 30 Days #60 tab 06/28/24 Allergies Allergy/AdvReac Type Severity Reaction Status Date / Time No Known Allergies Allergy Verified 02/14/24 08:05 Review of Systems ROS Other: All systems not noted in ROS Statement are negative. <Summer Lux - Last Filed: 06/28/24 18:15> ROS Other: All systems not noted in ROS Statement are negative. <Salome Carrasquillo - Last Filed: 07/01/24 17:49> ROS Statement: Those systems with pertinent positive or pertinent negative responses have been documented in the HPI. Past Medical History Past Medical History: No Reported History Additional Past Medical History / Comment(s): covid 2021, seizure History of Any Multi-Drug Resistant Organisms: None Reported Past Surgical History: No Surgical Hx Reported Past Anesthesia/Blood Transfusion Reactions: No Reported Reaction Past Psychological History: Anxiety, Depression Smoking Status: Never smoker Past Alcohol Use History: Occasional, Rare Past Drug Use History: Marijuana - Past Family History Mother Family Medical History: No Reported History <MaciSummer - Last Filed: 06/28/24 18:15> General Exam <Summer Lux - Last Filed: 06/28/24 18:15> Limitations: no limitations General appearance: alert, in no apparent distress Head exam: Present: atraumatic, normocephalic, normal inspection Eye exam: Present: normal appearance, PERRL, EOMI. Absent: periorbital swelling Neck exam: Present: normal inspection. Absent: meningismus Respiratory exam: Present: normal lung sounds bilaterally. Absent: respiratory distress, wheezes, rales, rhonchi, stridor Cardiovascular Exam: Present: regular rate, normal rhythm, normal heart sounds. Absent: systolic murmur, diastolic murmur, rubs, gallop, clicks Extremities exam: Present: normal inspection, full ROM Neurological exam: Present: alert, oriented X3 Expanded Eye Response: (4) open spontaneously Motor Response: (6) obeys commands Verbal Response: (5) oriented [place] Total: 15 Psychiatric exam: Present: normal affect, normal mood Skin exam: Present: warm, dry, normal color <Salome Carrasquillo - Last Filed: 07/01/24 17:49> - General Exam Comments Initial Comments: Visual Physical Exam Vital signs reviewed General: Well-appearing, nontoxic, no acute distress. Head: Normocephalic, atraumatic Eyes: PERRLA, EOMI ENT: Airway patent Chest: Nonlabored breathing Skin: No visual rash, normal skin tone Neuro: Alert and oriented 3 Musculoskeletal: No gross abnormalities (Summer Lux) Course Vital Signs 06/28/24 06/28/24 06/28/24 18:45 22:53 23:13 Temperature 97.7 F Pulse Rate 97 92 98 Respiratory 18 18 20 Rate Blood Pressure 127/79 130/84 134/89 O2 Sat by Pulse 99 97 98 Oximetry Medical Decision Making <Summer Lux - Last Filed: 06/28/24 18:15> - Lab Data Result diagrams: 06/28/24 21:08 06/28/24 21:08 <Salome Carrasquillo - Last Filed: 07/01/24 17:49> - Medical Decision Making I performed the QuickNote portion of this chart. Signed Summer Lux PA-C. (Summer Lux) Was pt. sent in by a medical professional or institution (MYRNA Gonzalez, ENVIRONMENTAL RESEARCH PROJECT MANAGER, urgent care, hospital, or long term...) When possible be specific @ -No Did you speak to anyone other than the patient for history (EMS, parent, family, police, friend...)? What history was obtained from this source @ -No Did you review nursing and triage notes (agree or disagree)? Why? @ -I reviewed and agree with nursing and triage notes Were old charts reviewed (outside hosp., previous admission, EMS record, old EKG, old radiological studies, urgent care reports/EKG's, long term records)? Report findings @ -No old charts were reviewed Differential Diagnosis (chest pain, altered mental status, abdominal pain women, abdominal pain men, vaginal bleeding, weakness, fever, dyspnea, syncope, headache, dizziness, GI bleed, back pain, seizure, CVA, palpatations, mental health, musculoskeletal)? @ -MDM Differential Seizure: Recurrent seizure disorder, febrile seizure, alcohol withdrawal, stimulants, m eningitis, encephalitis, intercranial hemorrhage, intracranial tumor, stroke, eclampsia, thyrotoxicosis, hypocalcemia, hyponatremia, hypernatremia, hypomagnesemia, psychogenic this is not meant to be an all-inclusive list EKG interpreted by me (3pts min.). @ -EKG shows sinus rhythm ventricular rate 73. VA interval 174. QRS 102. QT 346. QTc 371 X-rays interpreted by me (1pt min.). @ -None done CT interpreted by me (1pt min.). @ -CT shows no acute fracture or dislocation evident in the cervical spine. No acute intracranial hemorrhage or midline shift is seen. No acute displaced fac ial bone fracture U/S interpreted by me (1pt. min.). @ -None done What testing was considered but not performed or refused? (CT, X-rays, U/S, labs)? Why? @ -None What meds were considered but not given or refused? Why? @ -None Did you discuss the management of the patient with other professionals (professionals i.e. , PA, ENVIRONMENTAL RESEARCH PROJECT MANAGER, lab, RT, psych nurse, social media marketing analyst, merchandise team manager, teacher, marine safety officer, protective services case worker)? Give summary @ -No Was smoking cessation discussed for >3mins.? @ -No Was critical care preformed (if so, how long)? @ -No Were there social determinants of health that impacted care today? How? (Homelessness, low income, unemployed, alcoholism, drug addiction, transportation, low edu. Level, literacy, decrease access to med. care, [facility], rehab)? @ -No Was there de-escalation of care discussed even if they declined (Discuss DNR or withdrawal of care, Hospice)? DNR status @ -No What co-morbidities impacted this encounter? (DM, HTN, Smoking, COPD, CAD, Cancer, CVA, ARF, Chemo, Hep., AIDS, mental health diagnosis, sleep apnea, morbid obesity)? @ -None Was patient admitted / discharged? Hospital course, mention meds given and route, prescriptions, significant lab abnormalities, going to OR and other pertinent info. @ -23-year-old female presented with chief complaint of seizure. She does have history of seizures, has not been taking her medication as prescribed because she is run out. Workup is initiated by triage, patient is later placed in a hallway bed and evaluated by myself. Lab work is grossly unremarkable. No acute process seen on CT of the head, neck, and facial bones. I went over the medications listed on file, by hearing the names patient remembers that she takes Keppra twice a day. She sent a refill of her Keppra. She is given 1 g of Keppra IV here in the ER. She will follow-up with neurology at her scheduled appointment in July. Follow-up with PCP. Report back to ER with any new or worsening symptoms. Discussed return parameters and answered all questions. Patient conveyed verbal understanding and agreed to the plan. I discussed this case in detail with my attending Dr. Green Undiagnosed new problem with uncertain prognosis? @ -No Drug Therapy requiring intensive monitoring for toxicity (Heparin, Nitro, Insulin, Cardizem)? @ -No Were any procedures done? @ -No Diagnosis/symptom? @ -Seizure disorder Acute, or Chronic, or Acute on Chronic? @ -Acute on chronic Uncomplicated (without systemic symptoms) or Complicated (systemic symptoms)? @ -Uncomplicated Side effects of treatment? @ -No Exacerbation, Progression, or Severe Exacerbation? @ -No Poses a threat to life or bodily function? How? (Chest pain, [place], [place], pneumonia, PE, COPD, DKA, ARF, appy, cholecystitis, CVA, Diverticulitis, Homicidal, Suicidal, threat to staff... and all critical care pts) @ -Potentially if the patient continues being noncompliant with her medication (Salome Carrasquillo) - Lab Data Lab Results 06/28/24 06/28/24 06/28/24 Range/Units 21:08 21:08 22:51 WBC 8.2 (3.8-10.6) k/uL RBC 4.28 (3.80-5.40) m/uL Hgb 12.0 (11.4-16.0) gm/dL Hct 38.3 (34.0-46.0) % MCV 89.6 (80.0-100.0) fL MCH 28.2 (25.0-35.0) pg MCHC 31.4 (31.0-37.0) g/dL RDW 14.7 (11.5-15.5) % Plt Count 242 (150-450) k/uL MPV 8.1 Neutrophils % 76 % Lymphocytes % 17 % Monocytes % 5 % Eosinophils % 1 % Basophils % 0 % Neutrophils # 6.2 (1.3-7.7) k/uL Lymphocytes # 1.4 (1.0-4.8) k/uL Monocytes # 0.4 (0-1.0) k/uL Eosinophils # 0.1 (0-0.7) k/uL Basophils # 0.0 (0-0.2) k/uL Sodium 137 (137-145) mmol/L Potassium 4.0 (3.5-5.1) mmol/L Chloride 102 (98-107) mmol/L Carbon Dioxide 25 (22-30) mmol/L Anion Gap 10 mmol/L BUN 7 (7-17) mg/dL Creatinine 0.66 (0.52-1.04) mg/dL Est GFR (CKD-EPI)AfAm >90 (>60 ml/min/1.73 sqM) Est GFR (CKD-EPI)NonAf >90 (>60 ml/min/1.73 sqM) Glucose 85 (74-99) mg/dL Plasma Lactic Acid Forrest 0.8 (0.7-2.0) mmol/L Calcium 9.5 (8.4-10.2) mg/dL Magnesium 2.2 (1.6-2.3) mg/dL Total Bilirubin 0.6 (0.2-1.3) mg/dL AST 25 (14-36) U/L ALT 21 (4-34) U/L Alkaline Phosphatase 57 (38-126) U/L Total Protein 7.5 (6.3-8.2) g/dL Albumin 4.7 (3.5-5.0) g/dL Serum Alcohol <10 mg/dL Disposition <Summer Lux - Last Filed: 06/28/24 18:15> Is patient prescribed a controlled substance at d/c from ED?: No Time of Disposition: 22:35 <Salome Carrasquillo - Last Filed: 07/01/24 17:49> Clinical Impression: Generalized seizure Disposition: HOME SELF-CARE Condition: Good Instructions (If sedation given, give patient instructions): Seizure/Epilepsy Discharge Instructions & Follow-Up Additional Instructions: Follow-up with PCP and neurology. Report back to ER with any new or worsening symptoms. Take your medication as prescribed. You cannot drive for 6 months. Avoid swimming while unattended. Avoid heights. Prescriptions: levETIRAcetam [Keppra] 500 mg PO Q12HR 30 Days #60 tab Referrals: Angelique Washburn MD [Primary Care Provider] - 1-2 days
[2024-06-28 18:48] VITALS: TEMP 97.7
--- NOTE | 2024-06-28 21:08 | CT ---
EXAMINATION TYPE: CT brain cspine wo con, CT facial bones wo con DATE OF EXAM: 06/28/2024 COMPARISON: CT brain February 13, 2024 HISTORY: Seizure. Patient hit left side of face on the floor. Neck pain. Recent injury. CT DLP: Combined DLP of 1308.2 mGycm. Automated Exposure Control for Dose Reduction was Utilized. TECHNIQUE: CT scan of the head, facial bones, and cervical spine are all performed without contrast. FINDINGS: There is no acute intracranial hemorrhage, mass effect, or midline shift identified. The ventricles and sulci are within normal limits in size. Mansfield-white matter differentiation is preserve d. The calvarium is intact. The mandible is intact. Temporomandibular joints are maintained bilaterally. The zygomatic arches are intact. The nasal bones are intact. The orbital floors and almanzar are intact. The globes are intact b ilaterally. The pterygoid plates are intact. There is streak artifact from cavitary fillings and quina[place] ns in the bilateral teeth.. The paranasal sinuses are grossly clear. Cervical spine is visualized in its entirety from C1 through upper thoracic levels and demonstrates l oss of normal cervical curvature without evidence of acute fracture or dislocation. Prevertebral sof t tissue appears within normal limits. The C1-C2 articulation is within normal limits on the coronal images. Vertebral body heights and disc space heights are within normal limits. Spinal canal is pre served. Lung apices are clear without pneumothorax. Thyroid gland is normal in size. IMPRESSION: 1. There is no acute fracture or dislocation evident in the cervical spine. 2. No acute intracranial hemorrhage or midline shift is seen. 3. No acute displaced facial bone fracture. [facility], , 06/28/2024 9:06 PM
[2024-06-28 21:37] LABS: ALT 21 U/L (4-34); AST 25 U/L (14-36); African American GFR (CKD) >90 (>60 ml/min/1.73 sqM); Albumin 4.7 g/dL (3.5-5.0); Alcohol <10 mg/dL; Alkaline Phosphatase 57 U/L (38-126); Anion Gap 10 mmol/L; Blood Urea Nitrogen 7 mg/dL (7-17); Calcium 9.5 mg/dL (8.4-10.2); Carbon Dioxide 25 mmol/L (22-30); Chloride 102 mmol/L (98-107); Glucose 85 mg/dL (74-99); Magnesium 2.2 mg/dL (1.6-2.3); Non-African American GFR(CKD) >90 (>60 ml/min/1.73 sqM); Sodium 137 mmol/L (137-145); Total Bilirubin 0.6 mg/dL (0.2-1.3); Total Protein 7.5 g/dL (6.3-8.2)
[2024-06-28 21:43] LABS: Basophils % (A) 0 %; Eosinophils # (A) 0.1 k/uL (0-0.7); Eosinophils % (A) 1 %; HCT 38.3 % (34.0-46.0); Lymphocytes # (A) 1.4 k/uL (1.0-4.8); Lymphocytes % (A) 17 %; MCH 28.2 pg (25.0-35.0); MCHC 31.4 g/dL (31.0-37.0); MCV 89.6 fL (80.0-100.0); Mean Platelet Volume 8.1; Monocytes # (A) 0.4 k/uL (0-1.0); Monocytes % (A) 5 %; Neutrophils # (A) 6.2 k/uL (1.3-7.7); Neutrophils % (A) 76 %; Platelet Count 242 k/uL (150-450); RBC 4.28 m/uL (3.80-5.40); RDW 14.7 % (11.5-15.5); WBC 8.2 k/uL (3.8-10.6)
[2024-06-28] MEDS: levETIRAcetam IV 500 MG/5 ML VIAL IVP STA (22:43)
[2024-06-28 23:14] VITALS: BP 134/89; PULSE 98; RESP 20
== END 2024-06-28 23:20 | disposition home or self-care (01) ==
LOC: EC 17:37
DX: G40.409 Other generalized epilepsy and epileptic syndromes, not intractable, without status epilepticus (principal); Z86.16 Personal history of COVID-19
CPT/HCPCS: 36415; 93005; 80053; 83605; 83735; 85025; 72125; 70486; 70450; 99285; 96374; G0480; J1953; 80320